=== PATIENT | male | born 1945 | race Caucasian/White ===

== ENCOUNTER → 2016-11-25 | Outpatient (CLI) | payer MEDICARE, OTHER ==
[2016-03-27 11:05] VITALS: BP 115/69
[~2016-11-25] MED LIST: ASPI81TA50 PO; BUPR150T4 PO; CELE200C PO; CITA20TA5 PO; MELO-150 PO; METO25TA4 PO; METO25TA9 PO; REGADENOSON 0.4 MG/5 ML DISP.SYRIN. IV ONE; SIMV20TA3 PO; TAMS0.4C2 PO; TRAM50TA PO; TRAZ50TA15 PO
--- NOTE | 2016-11-25 11:05 | RAD ---
APPROVED REPORT Test Type: Pharmacological Stress Nurse/Tech: Rhonda Dooley R.N. Test Indications: CAD, fatigue Cardiac History: Family history, CAD Medications: See Electronic Medical Record Medical History: See Electronic Medical Record Resting ECG: S,. richard Resting Heart Rate: 47 bpm Resting Blood Pressure: 98/54mmHg Pretest Chest Pain: No chest pain Nurse/Tech Notes S1S2, lungs sound clear Consent: The procedure was explained to the patient in lay terms. Informed consent was witnessed. Carloz eout was entered into [employer]. History and Stress Test performed by Rhonda Dooley R.N. Pharm. Details Pharmacologic stress testing was performed using 0.4mg per 5ml of regadenoson given intravenously ove r 7-10 seconds. Stress Symptoms No chest pain or symptoms. POST EXERCISE Reason for Termination: Infusion complete Max HR: 77 bpm Max Blood Pressure: 106/57mmHg Blood Pressure response to exercise: Normal blood pressure response during stress. Chest Pain: No. Arrhythmia: No. ST Change: No. INTERPRETATION Stress EKG Conclusion: No evidence of stress induced EKG changes. Baseline septal infarct pattern. Imaging Protocol IMAGE PROTOCOL: Rest Tc-99m/stress Tc-99m 1 day Rest: Stress: Viability: Radiopharm.Tc99m FhamrazefDn49u Sestamibi Rkdk38eYp 31mCi Img Date 11/25/2016 11/25/2016 Inj-Img [id number]. 60min. Rest Admin Site:IV - Left AntecubitalAdministrator:Canelo Powell RT (R)(N) Stress Admin Site: IV - Left AntecubitalAdministrator: Gricel Silva RT (R)(N) STRESS DATA End Diast. Vol.92.0mlAv. Heart Rate59.0bpm End Syst. Vol.25.0mlCO Index BSA0.0L/min Myocardial Mfaq740.0gEject. Brftucjm31.0% Stress Rates Pk. Fill Rate2.13EDV/secLVtime Pk. Fill 190.27msec Pk. Empty Rate3.90ESV/secLVtime Pk. Fsssh147.30msec 11/19 Pk. Fill1.29EDV/sec Stress Scores Regional WT0.00Summed WT0.00 Regional WM0.00Summed WM1.00 LV Perfusion There is a moderate to severe intensity, moderate to large sized fully reversible defect in the basal to distal inferior wall suggestive of impaired perfusion reserve without a prior infarct. Due to subdiaphragmatic activity, the inferior defect may be artifactually viable based on increased counts from the gut activity and may essentially be a fixed defect. Furthermore, due to significant motion artifact, the perfusion abnormality may also represent a compl ete artifact given the degree of motion and normal EF of > 70%. LV Perf. Quant 17 Seg. SSS0.00 17 Seg. SRS0.00 17 Seg. SDS0.00 Stress Defect Extent (% LAD)0.00Rest Defect Extent (% LAD)0.00Rev. Defect Extent (% LAD)0.00 Stress Defect Extent (% LCX) 0.00Rest Defect Extent (% LCX)0.00Rev. Defect Extent (% LCX)0.00 Stress Defect Extent (% RCA)0.00Rest Defect Extent (% RCA)0.00Rev. Defect Extent (% RCA)0.00 Stress Defect Extent (% PRETTY)0.00Rest Defect Extent (% PRETTY)0.00Rev. Defect Extent (% PRETTY)0.00 Other Information Quality:Poor Risk Assessment: Moderate Risk Conclusion 1. Poor quality study 2. There is a moderate to severe intensity, moderate to large sized fully reversible defect in the ba angela to distal inferior wall suggestive of impaired perfusion reserve without a prior infarct. 3. Due to subdiaphragmatic activity, the inferior defect may be artifactually viable based on increas ed counts from the gut activity and may essentially be a fixed defect. 4. Furthermore, due to significant motion artifact, the perfusion abnormality may also represent a co mplete artifact given the degree of motion and normal EF of > 70%.
== END | disposition home or self-care (01) ==
LOC: NM 06:39
PROVIDERS: ATTEND Internal Medicine Cardiovascular Disease
DX: I25.10 Atherosclerotic heart disease of native coronary artery without angina pectoris (principal); R53.83 Other fatigue
CPT/HCPCS: 78452; 93017; 96374; 96376; A9500; J2785

== ENCOUNTER 2016-11-29 08:50 | Outpatient (CLI) | payer MEDICARE, OTHER ==
[2016-11-29] VITALS (12 sets, daily range): BP systolic 94–117; BP diastolic 58–71
[~2016-11-29] VITALS: Ht 182.9 cm; Wt 95.3 kg
[~2016-11-29 08:50] MED LIST changes: -REGADENOSON 0.4 MG/5 ML DISP.SYRIN. IV ONE
[2016-11-29] MEDS ORDERED: IV NORMAL SALINE 1000ML BAG 1,000 ML IV SCH ×2 (09:07→12:25)
[2016-11-29 09:23] LABS: BASO # 0.1 x10^3/uL (0.0-0.2); BASO % 1 % (0-3); EOS % 3 % (0-3); HEMATOCRIT 45.1 % (39.0-53.0); HEMOGLOBIN 15.3 g/dL (13.0-17.5); LYMPH # 1.4 x10^3/uL (1.0-4.8); LYMPH % 16 % (24-48); MEAN CORPUSCULAR HEMOGLOBIN 31 pg (25-35); MEAN CORPUSCULAR HGB CONC 34 g/dL (31-37); MEAN CORPUSCULAR VOLUME 92 fL (79-100); MONO % 6 % (0-9); NEUT % 75 % (31-73); PLATELET COUNT 262 x10^3/uL (140-400); RED BLOOD COUNT 4.92 x10^6/uL (4.30-5.70); RED CELL DISTRIBUTION WIDTH 13.2 % (11.5-14.5); WHITE BLOOD COUNT 8.9 x10^3/uL (4.0-11.0)
[2016-11-29 09:33] LABS: CALCIUM 8.8 mg/dL (8.5-10.1); GFR 74.1; POTASSIUM 4.2 mmol/L (3.5-5.1)
[2016-11-29 09:38] LABS: PROTHROMBIN TIME PATIENT 12.2 SEC (11.7-14.0)
[2016-11-29] MEDS ORDERED: DIPHENHYDRAMINE 50 MG/ML VIAL IVP ONE (10:15)
[2016-11-29] MEDS ORDERED: methylPREDNISolone SOD SUCC PF 125 MG/2 ML VIAL. IV ONE (10:15)
[2016-11-29] MEDS ORDERED: FAMOTIDINE 20 MG/2 ML VIAL IVP ONE (10:15)
[2016-11-29] MEDS ORDERED: LIDOCAINE 2% 20 ML VIAL. ONE (10:46)
[2016-11-29] MEDS ORDERED: IOHEXOL 300 MG/ML 100ML VIAL. ONE (10:46)
[2016-11-29] MEDS ORDERED: FENTANYL PF 100 MCG/2 ML VIAL. ONE (11:09)
[2016-11-29] MEDS ORDERED: MIDAZOLAM HCL 2 MG/2 ML VIAL. ONE (11:09)
[2016-11-29] MEDS ORDERED: DIPHENHYDRAMINE 50 MG/ML VIAL ONE (11:10)
[2016-11-29] MEDS ORDERED: FAMOTIDINE 20 MG/2 ML VIAL ONE (11:10)
--- NOTE | 2016-11-29 11:28 | PDOC ---
MODERATE SEDATION ASSESSMENT RISKS/ALTERNATIVES Risks/Alternatives Risks and alternatives of this type of sedation and procedure discussed with: RISK/ALTERNATIVES: Patient H & P ON CHART H & P H & P on chart and reviewed for co-morbid conditions and appropriate labs. H&P ON CHART: Yes STATUS PREG STATUS ASSESSED: N/A MEDS/ALLERGIES REVIEWED Meds/Allergies Reviewed Medications and Allergies including time and route of recently administered narcotics and sedatives. MEDS/ALLERGIES REVIEWED: Yes ASA RATING ASA RATING: II AIRWAY ASSESSMENT Airway Assessment Airway patency, oral function limitations, presence of caps, crowns, dentures, partials, and ability to extend neck assessed. AIRWAY ASSESSMENT: Yes MALLAMPATI SCORE MALLAMPATI SCORE: II PRE-SEDATION ASSESSMENT PRE-SEDATION ASSESSMENT: Yes JARRELL LARSON MD Nov 29, 2016 11:28
[2016-11-29] MEDS ORDERED: MIDAZOLAM HCL 2 MG/2 ML VIAL. IV ONE (11:30)
[2016-11-29] MEDS ORDERED: LIDOCAINE 2% 20 ML VIAL. IJ ONE (11:30)
[2016-11-29] MEDS ORDERED: FENTANYL PF 100 MCG/2 ML VIAL. IV ONE (11:30)
[2016-11-29] MEDS ORDERED: IOHEXOL 300 MG/ML 100ML VIAL. IART ONE (11:30)
[2016-11-29] MEDS ORDERED: CONTRAST GIVEN MC PRN (11:45)
--- NOTE | 2016-11-29 12:24 | CARD ---
APPROVED REPORT Procedures Left heart catheterization. Left ventriculogram. Selective coronary angiogram. The patient is a 71-year-old male with a history of mild coronary artery disease. He reported episode s of mild increasing shortness of breath and had an abnormal nuclear stress test prior to upcoming o rthopedic surgery. Heart catheterization was recommended. Risks and benefits were discussed. The gurpreet ent has agreed to proceed. After informed consent was obtained the patient was brought to the heart catheterization lab. The rig ht femoral artery was prepared in the usual manner with Betadine, sterile draping and local anestheti c. An 18-gauge needle was used to enter the right femoral artery, a wire placed the [place] sheath p laced over the wire. A [place] JL4 diagnostic catheter was advanced to the ascending aorta. It was t hen used to engage the left coronary artery system and sequential injections in various views were ob tained. A [place] diagnostic Lloyd right catheter was advanced to the ascending aorta. It was use d to engage the right coronary artery and sequential injections in various views were obtained. A pig tail catheter was advanced to the ascending aorta and then the left ventricle. 30 STEWARD left ventricul ogram was performed. Pressures were obtained and pullback was measured. The catheter was removed from the patient. Injection of the sheath showed normal placement. The sheath was removed and sealed with an Angio-Seal product. There were no complications. Findings. Hemodynamics. Aortic root pressure of 110/74, left ventricular pressure 112/20. Coronaries. Left main. The left main had no lesions. Left anterior descending. The LAD was a moderate size vessel. It had a mid 20-25% lesion. Left circumflex. The left circumflex was large dominant vessel with no lesions. Right coronary artery. The right coronary was a smaller nondominant vessel with a proximal 15% lesion . Left ventriculogram. The left ventricle showed normal left ventricular systolic function with an ejection fraction of 55% <Conclusion> Mild coronary artery disease. Normal left ventricular systolic function.
[2016-11-29] MEDS ORDERED: NITROGLYCERIN SUBLINGUAL 0.4 MG BOTTLE OF 25. SL PRN (12:30)
[2016-11-29] MEDS ORDERED: 0.9 % SODIUM CHLORIDE 10 ML DISP.SYRIN. IV PRN (12:30)
== END 2016-11-29 15:10 | disposition home or self-care (01) ==
LOC: CCL 08:50
PROVIDERS: ATTEND Internal Medicine Cardiovascular Disease
DX: I25.10 Atherosclerotic heart disease of native coronary artery without angina pectoris (principal); R94.39 Abnormal result of other cardiovascular function study; E78.00 Pure hypercholesterolemia, unspecified; I48.91 Unspecified atrial fibrillation; I10 Essential (primary) hypertension; E66.9 Obesity, unspecified; K21.9 Gastro-esophageal reflux disease without esophagitis; M19.90 Unspecified osteoarthritis, unspecified site; F41.9 Anxiety disorder, unspecified; F32.9 Major depressive disorder, single episode, unspecified; F10.99 Alcohol use, unspecified with unspecified alcohol-induced disorder
CPT/HCPCS: 36415; 80048; 85027; 85610; 93458; C1769; C1771; C1892; G0269; J1200; J2250; J2930; J3010; J7030; Q9967; S0028

== ENCOUNTER → 2017-02-18 | Outpatient (CLI) | payer MEDICARE, OTHER ==
[2016-11-29 14:45] VITALS: BP 94/65
[~2017-02-18] MED LIST changes: +IOHEXOL 180 MG/ML 10 ML VIAL. ONE; +methylPREDNISolone ACETATE 40 MG/ML VIAL. ONE; +methylPREDNISolone ACETATE 80 MG/ML VIAL. ONE
--- NOTE | 2017-02-18 18:39 | PAIN ---
DATE OF SERVICE: 02/18/2017 DIAGNOSES: 1. Lumbar radiculopathy with lumbar degenerative disk disease and lumbar spondylosis. 2. Cervical radiculopathy with post-cervical laminectomy syndrome. HISTORY OF PRESENT ILLNESS: The patient is a 71-year-old male who returns for followup status post previous lumbar epidural steroid injections, last seen on 11/13/2016. The patient has undergone epidural injections at that time with very good results, with pain returning now over the past few weeks in the low back and right leg. The patient did have his right knee replaced since he has been here last, and reports this is doing much better as well, but still having some significant back pain radiating to the right posterior gluteus, posterior thigh, posterior lower leg, worse with sitting, standing, walking, changing positions, using ice and tennis ball to rub some of the stiffness out of the musculature in the low back and hip, but still significant pain. The patient reports anywhere from 4-10 on a scale of 10/10 with activity, 4 with sitting. The patient reports it awakens him from sleep once again with no new motor or sensory deficits, no loss of motor function. PHYSICAL EXAMINATION: VITAL SIGNS: The patient's blood pressure is 112/48, pulse 67, respirations 18, temperature 99.3 degrees Fahrenheit. Height is 6 feet, weight is 207 pounds. GENERAL: The patient is awake, alert, oriented, appropriate, very pleasant demeanor. HEENT: Head shows normocephalic, atraumatic. Extraocular movements are intact and symmetrical. Oral cavity shows mucous membranes moist and pink. Dentition is intact. NECK: Shows anterior throat supple without palpable lymphadenopathy noted. Swallow reflex is symmetrical. CHEST: Shows normal on inspection. Breath sounds clear to auscultation bilaterally. HEART: Shows S1 and S2 clear. ABDOMEN: Soft, nontender, nondistended. No palpable organomegaly. No rebound or guarding demonstrated. BACK: Shows spine grossly midline. Lumbar paraspinous musculature shows symmetrical in appearance. The patient shows moderate tenderness with palpation bilaterally in the paraspinous musculature in the middle and lower distribution of paraspinous muscles, but only to a moderate extent and without radiation. Lower extremities showed deep tendon reflexes at 1+ in the patellar and tendo calcaneus tendons, previously well-healed surgical scars again noted on both knees now. Motor exam is strong with 5/5 dorsiflexion, extension, quadriceps and hamstring flexion and symmetrical. Peripheral pulses are 1+ posterior tibial and dorsalis pedis pulses. No peripheral edema is noted bilaterally. Options were discussed with the patient and the patient's old chart was reviewed and his current medication regimen updated. Current review of systems updated today as well. PLAN: We will proceed with a lumbar epidural steroid injection today in translaminar approach, as the first in this series with fluoroscopic guidance. Risks were again discussed including, but not limited to bleeding, infection, possibility of epidural hematoma, subsequent neurologic compromise, dural puncture, headaches, spinal cord and/or nerve damage, side effects of steroid medication and poor results regarding pain control. The patient understands and wishes to proceed. The patient will return to clinic in approximately 2 weeks for followup, was counseled on return appointment, activity level and side effects to be aware of. DIAGNOSIS: Lumbar radiculopathy with lumbar spondylosis and lumbar degenerative disk disease. PROCEDURES: Lumbar epidural steroid injection in translaminar approach at the L5-S1 level using C-arm fluoroscopic guidance under sterile prep and drape using local anesthetic. Medication injected is 120 mg Depo-Medrol plus 10 mL of preservative-free normal saline and 2 mL of Isovue for contrast. CONDITION AT DISCHARGE: stable. The patient tolerated procedure well, had no complications. BRADY CHAMBERLAIN MD DR: CHARISSE/david JOB#: [id number] / [id number]
== END | disposition home or self-care (01) ==
LOC: PNCL 08:10
PROVIDERS: ATTEND Anesthesiology
DX: M51.16 Intervertebral disc disorders with radiculopathy, lumbar region (principal); M47.26 Other spondylosis with radiculopathy, lumbar region; M54.12 Radiculopathy, cervical region; M96.1 Postlaminectomy syndrome, not elsewhere classified; F41.9 Anxiety disorder, unspecified; F32.9 Major depressive disorder, single episode, unspecified; E78.00 Pure hypercholesterolemia, unspecified; I10 Essential (primary) hypertension; E66.9 Obesity, unspecified; M19.90 Unspecified osteoarthritis, unspecified site; I48.91 Unspecified atrial fibrillation; K21.9 Gastro-esophageal reflux disease without esophagitis; Z96.652 Presence of left artificial knee joint; Z96.611 Presence of right artificial shoulder joint; Z72.89 Other problems related to lifestyle
CPT/HCPCS: 62323; J1030; J1040

== ENCOUNTER → 2017-03-04 | Outpatient (CLI) | payer MEDICARE, OTHER ==
[2016-11-29 14:45] VITALS: BP 94/65
--- NOTE | 2017-03-05 00:07 | PAIN ---
DATE OF SERVICE: 03/04/2017 PROGRESS NOTE FOR PAIN CLINIC DIAGNOSES: 1. Lumbar radiculopathy with lumbar degenerative disk disease, lumbar spondylosis. 2. Cervical radiculopathy with cervical post-laminectomy syndrome. HISTORY OF PRESENT ILLNESS: The patient is a 71-year-old male, who returns for followup status post lumbar epidural steroid injection x 1. This series on 02/18/2017. The patient did very well, reports about 50% improvement overall, still has some pain in the low back and legs, more on the posterior gluteus, posterior thigh, posterior lower leg, but again significantly improved since about 2 on a scale 10 currently, it can be as high as 9 with increased activity, walking, but this is rare. The patient reports an aching, burning on and off pain, not constant ____ the patient is sleeping well at night, increasing his daily activity with better ease and comfort. The patient reports no new motor or sensory deficits, no new bowel or bladder incontinence or other complaints. PHYSICAL EXAMINATION: VITAL SIGNS: The patient's blood pressure 112/64, pulse 59, respirations are 18, temperature 98.2 degrees Fahrenheit. Height is 6 feet, weight is 202 pounds. GENERAL: The patient is awake, alert, oriented, appropriate, very pleasant demeanor. HEENT: Head shows normocephalic, atraumatic. Extraocular movements intact, symmetrical. Oral cavity, mucous membranes moist and pink. Dentition is intact. NECK: Shows anterior throat supple without palpable lymphadenopathy noted. Swallow reflex is symmetrical. CHEST: Shows normal on inspection. Breath sounds clear to auscultation bilaterally. HEART: Shows S1 and S2 clear. No murmurs auscultated. ABDOMEN: Soft, nontender, nondistended. No palpable organomegaly is noted. BACK: Shows midline, spine some moderate tenderness with palpation in the lumbar paraspinous musculature bilaterally, but ____. No significant tenderness over the sacroiliac region, sacrum or lumbar spinous processes. The patient shows good rotation and motion of the lumbar spine, both laterally as well as extension and flexion without difficulty. EXTREMITIES: Lower extremities showed deep tendon reflexes at 1+/4 in the patellar and tendo calcaneus tendons are equal. Motor exam is strong with 5/5 dorsiflexion, extension, quadriceps and hamstring flexion. Options were discussed with the patient and the patient's old chart was reviewed and his current medication regimen updated. Current review of systems updated today as well. We will proceed with second in this series of lumbar epidural steroid injection using fluoroscopic guidance under sterile prep and drape. Risks were then discussed including, but not limited to bleeding, infection, possibility of epidural hematoma, subsequent neurological compromise, dural puncture, headaches, spinal cord and/or nerve damage, side effects of steroid medication and poor results regarding pain control. The patient understands and wishes to proceed. The patient will return to clinic in approximately 2 weeks for followup, counseled on return appointment, activity level and side effects to be aware of. DIAGNOSES: Lumbar radiculopathy with lumbar degenerative disk disease, lumbar spondylosis. PROCEDURES: Lumbar epidural steroid injection in translaminar approach at the L5-S1 level using C-arm fluoroscopic guidance under sterile prep and drape using local anesthetic MEDICATION INJECTED: Depo-Medrol 120 mg plus 10 mL of preservative-free normal saline and 2 mL of Isovue for contrast. CONDITION AT DISCHARGE: Stable. The patient tolerated procedure well and no complications. BRADY CHAMBERLAIN MD DR: CHARISSE/david JOB#: [id number] / [id number]
== END | disposition home or self-care (01) ==
LOC: PNCL 08:20
PROVIDERS: ATTEND Anesthesiology
DX: M51.16 Intervertebral disc disorders with radiculopathy, lumbar region (principal); M47.26 Other spondylosis with radiculopathy, lumbar region; M96.1 Postlaminectomy syndrome, not elsewhere classified; M54.12 Radiculopathy, cervical region; E78.00 Pure hypercholesterolemia, unspecified; I10 Essential (primary) hypertension; E66.9 Obesity, unspecified; F41.9 Anxiety disorder, unspecified; F32.9 Major depressive disorder, single episode, unspecified; M19.90 Unspecified osteoarthritis, unspecified site; Z72.89 Other problems related to lifestyle
CPT/HCPCS: 62323; J1030; J1040

== ENCOUNTER → 2017-05-02 | Outpatient (CLI) | payer MEDICARE, OTHER ==
[2016-11-29 14:45] VITALS: BP 94/65
[~2017-05-02] MED LIST changes: -MELO-150 PO; +MELO15TA23 PO
--- NOTE | 2017-05-02 11:06 | PAIN ---
DATE OF SERVICE: 05/02/2017 PROGRESS NOTE FOR PAIN CLINIC DIAGNOSES: Lumbar degenerative disk disease, lumbar radiculopathy and lumbar spondylosis. HISTORY OF PRESENT ILLNESS: The patient is a 72-year-old male, who returns for followup status post lumbar epidural steroid injection x 2, last seen on 03/04/2017. The patient did very well about 75% improvement in the low back and right lower extremity pain. The patient reports it is returning gradually, but still near to baseline. The patient reports it is 7 on a scale of 10 it is worst, is currently 2 on a scale of 10 ____ reports the pain is dull and shooting it can be severe, most of with walking, standing. The patient reports it does not awake him from sleep at night, and he feels better with sitting down or lying down. No new motor or sensory deficits, no new bowel or bladder incontinence or other complaints. PHYSICAL EXAMINATION: VITAL SIGNS: Today, the patient's blood pressure is 105/43, pulse 61, respirations are 20, temperature 98.4 degrees Fahrenheit, height 6 feet, weight is 211 pounds. GENERAL: The patient is awake, alert, oriented, appropriate, very pleasant demeanor. HEENT: Head shows normocephalic, atraumatic. Extraocular movements are intact and symmetrical. Oral cavity shows mucous membranes moist and pink. Dentition is intact. NECK: Shows anterior throat supple without palpable lymphadenopathy noted. Swallow reflex is symmetrical. CHEST: Shows normal on inspection. Breath sounds are clear to auscultation bilaterally. HEART: Shows S1 and S2 clear. ABDOMEN: Soft, nontender, nondistended. No palpable organomegaly, no rebound or guarding demonstrated. BACK: Shows spine grossly midline. Lumbar paraspinous musculature shows symmetry on inspection with palpation shows some mild tenderness in the low lumbar distribution, but only mildly ____ lumbar paraspinous muscles without radiation. The patient has good rotational motion of lumbar spine, both laterally as well as extension and flexion without difficulty. EXTREMITIES: Lower extremities showed deep tendon reflexes at 1+ in the patellar and tendo calcaneus tendons. Motor exam is strong with 5/5 dorsiflexion, extension, quadriceps and hamstring flexion equal. Options were discussed with the patient and the patient's old chart was reviewed as his current medication regimen updated. Current review of systems updated today as well. We will proceed with third in the series of lumbar epidural steroid injection with fluoroscopic guidance. Risks were then discussed including, but not limited to bleeding, infection, possibility of epidural hematoma and subsequent neurological compromise, dural puncture, headaches, spinal cord and/or nerve damage, side effects of steroid medication and poor results regarding pain control. The patient understands and wishes to proceed. The patient will return to clinic in approximately 2 weeks for followup. He was counseled as to return appointment, activity level and side effects to be aware of. DIAGNOSES: Lumbar radiculopathy with degenerative disk disease, lumbar spondylosis. PROCEDURES: Lumbar epidural steroid injection in translaminar approach at the L5-S1 level using C-arm fluoroscopic guidance under sterile prep and drape using local anesthetic. MEDICATIONS INJECTED: Depo-Medrol 120 mg plus 10 mL preservative free normal saline and 2 mL of Isovue for contrast. CONDITION AT DISCHARGE: Stable. The patient tolerated the procedure well, had no complications. BRADY CHAMBERLAIN MD DR: CHARISSE/nts JOB#: [id number] / [id number]
== END | disposition home or self-care (01) ==
LOC: PNCL 07:43
PROVIDERS: ATTEND Anesthesiology
DX: M51.16 Intervertebral disc disorders with radiculopathy, lumbar region (principal); M47.26 Other spondylosis with radiculopathy, lumbar region; I25.10 Atherosclerotic heart disease of native coronary artery without angina pectoris; E78.00 Pure hypercholesterolemia, unspecified; I48.91 Unspecified atrial fibrillation; I10 Essential (primary) hypertension; K21.9 Gastro-esophageal reflux disease without esophagitis; E66.9 Obesity, unspecified; Z68.45 Body mass index [BMI] 70 or greater, adult; F41.9 Anxiety disorder, unspecified; F32.9 Major depressive disorder, single episode, unspecified; Z86.69 Personal history of other diseases of the nervous system and sense organs; Z96.652 Presence of left artificial knee joint; Z96.611 Presence of right artificial shoulder joint; Z87.39 Personal history of other diseases of the musculoskeletal system and connective tissue; Z91.048 Other nonmedicinal substance allergy status
CPT/HCPCS: 62323; J1030; J1040

== ENCOUNTER → 2017-05-13 | Outpatient (CLI) | payer MEDICARE ==
[2016-11-29 14:45] VITALS: BP 94/65
[~2017-05-13] MED LIST changes: -IOHEXOL 180 MG/ML 10 ML VIAL. ONE; -methylPREDNISolone ACETATE 40 MG/ML VIAL. ONE; -methylPREDNISolone ACETATE 80 MG/ML VIAL. ONE
--- NOTE | 2017-05-14 08:47 | CARD ---
APPROVED REPORT EXAM: Two-dimensional and M-mode echocardiogram with Doppler and color Doppler. Other Information Quality : Average Rhythm : NSR INDICATION Atrial Fibrillation 2D DIMENSIONS RVDd3.3 (2.9-3.5cm)Left Atrium(2D)4.3 (1.6-4.0cm) IVSd1.1 (0.7-1.1cm)Aortic Root(2D)3.1 (2.0-3.7cm) LVDd4.7 (3.9-5.9cm)LVOT Diameter2.2 (1.8-2.4cm) PWd1.1 (0.7-1.1cm)LVDs2.7 (2.5-4.0cm) FS (%) 32.2 %SV75.2 ml LVEF(%)63.2 (>50%) Aortic Valve AoV Peak Oz.97.8cm/sAoV VTI20.3cm AO Peak GR.3.8mmHgLVOT Peak Oz.78.2cm/s LVOT VTI 18.43cmAO Mean GR.2mmHg REINALDO (VMAX)3.68yt1BAM (VTI)3.44cm2 Mitral Valve MV E Mlyyqfur35.3cm/sMV DECEL QFEU781nr MV A Tygwqlvp58.4cm/sMV WHP29zj E/A Ratio1.3MV A Wdbtuets557qk MVA (PHT)3.55cm2 TDI E/Lateral E'5.7E/Medial E'7.7 Pulmonary Valve PV Peak Zfdhusqi106.9cm/sPV Peak Grad.4mmHg RVOT VTI18.4cm Tricuspid Valve TR P. Gnlslskk535bm/sRAP OHPSZZXA2qeNn TR Peak Gr.50fwHxMZUN43suXh Pulmonary Vein S1 Jjeyprxx85.5cm/sD2 Rrprcuhr03.3cm/s LEFT VENTRICLE The left ventricle is normal size. There is normal left ventricular wall thickness. Left ventricle sy stolic function is normal. The Ejection Fraction is 60-65%. There is normal LV segmental wall motion. Tissue Doppler imaging reveals mild left ventricular diastolic dysfunction. There is no ventricular septal defect visualized. RIGHT VENTRICLE The right ventricle is normal size. The right ventricular systolic function is normal. ATRIA The left atrium is borderline dilated. The right atrium size is normal. The interatrial septum is int act with no evidence for an atrial septal defect or patent foramen ovale as noted on 2-D or Doppler i maging. AORTIC VALVE The aortic valve is normal in structure and function. The aortic valve is trileaflet. Doppler and Col or Flow revealed no significant aortic regurgitation. There is no significant aortic valvular stenosi s. MITRAL VALVE The mitral valve leaflets are thickened. There is no mitral valve stenosis. Doppler and Color Flow re vealed trace mitral regurgitation. TRICUSPID VALVE The tricuspid valve is normal in structure and function. Doppler and Color Flow revealed trace to mil d tricuspid regurgitation. The PA pressure was estimated at 34 mmHg. There is no tricuspid valve sten osis. PULMONIC VALVE Doppler and Color Flow revealed trace to mild pulmonic valvular regurgitation. There is no pulmonic v alvular stenosis. GREAT VESSELS The aortic root is normal in size. The ascending aorta is normal in size. The IVC is normal in size a nd collapses >50% with inspiration. PERICARDIAL EFFUSION There is no evidence of significant pericardial effusion. Critical Notification Critical Value: No <Conclusion> Left ventricle systolic function is normal. The Ejection Fraction is 60-65%. There is normal LV segmental wall motion.
== END | disposition home or self-care (01) ==
LOC: ECHO 07:41
PROVIDERS: ATTEND Internal Medicine Cardiovascular Disease
DX: I48.91 Unspecified atrial fibrillation (principal); I08.1 Rheumatic disorders of both mitral and tricuspid valves
CPT/HCPCS: 93306

== ENCOUNTER → 2017-05-30 | Day surgery (SDC) | payer MEDICARE ==
[~2017-05-30] MED LIST changes: +BENZOCAINE ONE 20% MUCOSAL SPRAY.; +GLUC1CAP18 PO; +HYDROmorphone 2 MG/ML VIAL IV PRN; +IV RINGERS,LACTATED 1000ML 1,000 ML IV SCH; +LIDOCAINE 1% 1 ML SYRINGE. ID PRN; +LIDOCAINE 2% PF Vial for OR 5 ML VIAL. ONE; +LIDOCAINE 2% TOPICAL JELLY 30GM TUBE. TP ONE; +LIDOCAINE 2% VISCOUS 15 ML SOLUTION. ONE; +MORPHINE SULFATE 2 MG/ML DISP.SYRIN. IV PRN; +OMEG1CAP27 PO; +ONDANSETRON PF 4 MG/2 ML VIAL. IV PRN; +PROCHLORPERAZINE 10 MG/2 ML VIAL. IV PRN; +PROPOFOL 40 ML IV ONE; +fentaNYL PF VIAL 100 MCG/2 ML VIAL IV PRN
[2017-05-30 13:18] VITALS: BP 133/61
--- NOTE | 2017-06-04 12:05 | CARD ---
APPROVED REPORT EXAM: Transesophageal echocardiogram with color flow Doppler. INDICATION Atrial Fibrillation Reason For Test : Rule out Intracardiac Thrombus. PROCEDURE After obtaining informed consent, patient underwent transesophageal echo in the PACU. Type of Sedation : General Anesthesia Sedation was provided by anesthesiologist, see EMR for medications administered. Sedation was administered by KANWAL Sanchez. Sedation was achieved with Propofol 300 mg intravenously. Sedation was achieved with Lidocaine 60 mg intravenously. Transesophageal probe was inserted and advanced into esophagus by Armond Story MD. Echo enhancement indication: R/O Septal defect. Echo enhancement agent administered: Agitated Saline The HANNY was performed without complications. Throughout the procedure, the blood pressure, pulse oximetry, cardiac rhythm, and rate were monitored . The patient tolerated the procedure without adverse effects. Recovery from conscious sedation was une ventful and vital signs were stable. LEFT VENTRICLE The left ventricle is normal size. There is normal left ventricular wall thickness. Left ventricle sy stolic function is normal. The Ejection Fraction is 60-65%. There is normal LV segmental wall motion. There is no ventricular septal defect visualized. RIGHT VENTRICLE The right ventricle is normal size. The right ventricular systolic function is normal. ATRIA The left atrium is moderately dilated. The right atrium is mildly dilated. The interatrial septum is intact with no evidence for an atrial septal defect or patent foramen ovale as noted on 2-D or Dopple r imaging. Injection of bubbles documented no interatrial shunt. There is no thrombus noted in the le ft atrial appendage. AORTIC VALVE The aortic valve is normal in structure and function. The aortic valve is trileaflet. Doppler and Col or Flow revealed no significant aortic regurgitation. There is no significant aortic valvular stenosi s. MITRAL VALVE The mitral valve leaflets are thickened. Doppler and Color Flow revealed mild mitral regurgitation. TRICUSPID VALVE The tricuspid valve is normal in structure and function. Doppler and Color Flow revealed trace tricus pid valve regurgitation. PULMONIC VALVE The pulmonary valve is normal in structure and function. GREAT VESSELS The aortic root is normal in size. The ascending aorta is normal in size. Normal pulmonary venous cristhian w (Doppler). The IVC was visualized and appears normal in size. The SVC was visualized and appears no rmal in size. PERICARDIAL EFFUSION There is no evidence of significant pericardial effusion. Critical Notification Critical Value: No <Conclusion> The left ventricle is normal size. Left ventricle systolic function is normal. The Ejection Fraction is 60-65%. There is normal left ventricular wall thickness. The left atrium is moderately dilated. The right atrium is mildly dilated. The interatrial septum is intact with no evidence for an atrial septal defect or patent foramen ovale as noted on 2-D or Doppler imaging. Injection of bubbles documented no interatrial shunt. There is no thrombus noted in the left atrial appendage. There is no significant aortic valvular stenosis. Doppler and Color Flow revealed no significant aortic regurgitation. Doppler and Color Flow revealed mild mitral regurgitation. Doppler and Color Flow revealed trace tricuspid valve regurgitation.
== END | disposition home or self-care (01) ==
LOC: SURG 10:13
PROVIDERS: ATTEND Internal Medicine Cardiovascular Disease
DX: I48.91 Unspecified atrial fibrillation (principal); Z86.69 Personal history of other diseases of the nervous system and sense organs; I25.10 Atherosclerotic heart disease of native coronary artery without angina pectoris; E78.00 Pure hypercholesterolemia, unspecified; I10 Essential (primary) hypertension; E66.9 Obesity, unspecified; Z68.44 Body mass index [BMI] 60.0-69.9, adult; Z96.611 Presence of right artificial shoulder joint; Z96.652 Presence of left artificial knee joint; Z91.048 Other nonmedicinal substance allergy status
CPT/HCPCS: 93312; 93325; J2001; J2704

== ENCOUNTER → 2017-11-26 | Outpatient (CLI) | payer MEDICARE | END | disposition home or self-care (01) | LOC: PNCL 08:22 | DX: M51.16 Intervertebral disc disorders with radiculopathy, lumbar region (principal); M47.896 Other spondylosis, lumbar region | CPT/HCPCS: G0463 ==

== ENCOUNTER → 2017-11-27 | Outpatient (CLI) | payer MEDICARE ==
[~2017-11-27] MED LIST changes: -ASPI81TA50 PO; -BENZOCAINE ONE 20% MUCOSAL SPRAY.; -BUPR150T4 PO; -CELE200C PO; -CITA20TA5 PO; -GLUC1CAP18 PO; -HYDROmorphone 2 MG/ML VIAL IV PRN; +IOHEXOL 180 MG/ML 10 ML VIAL.; -IV RINGERS,LACTATED 1000ML 1,000 ML IV SCH; -LIDOCAINE 1% 1 ML SYRINGE. ID PRN; -LIDOCAINE 2% PF Vial for OR 5 ML VIAL. ONE; -LIDOCAINE 2% TOPICAL JELLY 30GM TUBE. TP ONE; -LIDOCAINE 2% VISCOUS 15 ML SOLUTION. ONE; -MELO15TA23 PO; -METO25TA4 PO; -METO25TA9 PO; -MORPHINE SULFATE 2 MG/ML DISP.SYRIN. IV PRN; -OMEG1CAP27 PO; -ONDANSETRON PF 4 MG/2 ML VIAL. IV PRN; -PROCHLORPERAZINE 10 MG/2 ML VIAL. IV PRN; -PROPOFOL 40 ML IV ONE; -SIMV20TA3 PO; -TAMS0.4C2 PO; -TRAM50TA PO; -TRAZ50TA15 PO; -fentaNYL PF VIAL 100 MCG/2 ML VIAL IV PRN; +methylPREDNISolone ACETATE 40 MG/ML VIAL.; +methylPREDNISolone ACETATE 80 MG/ML VIAL.
== END | disposition home or self-care (01) ==
LOC: PNCL 07:45
DX: M51.16 Intervertebral disc disorders with radiculopathy, lumbar region (principal); M96.1 Postlaminectomy syndrome, not elsewhere classified; M47.26 Other spondylosis with radiculopathy, lumbar region
CPT/HCPCS: 62321; J1030; J1040

== ENCOUNTER → 2018-03-10 | Outpatient (CLI) | payer MEDICARE ==
[~2018-03-10] MED LIST changes: +BUPIVACAINE MPF 0.25% 10 ML VIAL.; -IOHEXOL 180 MG/ML 10 ML VIAL.; -methylPREDNISolone ACETATE 80 MG/ML VIAL.
== END ==
LOC: PNCL 09:11
DX: M25.551 Pain in right hip (principal); M54.12 Radiculopathy, cervical region; M79.1 Myalgia
CPT/HCPCS: 20552; J1030; J3490

== ENCOUNTER → 2018-03-26 | Outpatient (CLI) | payer MEDICARE | LOC: PNCL 11:13 | DX: M79.1 Myalgia (principal); M51.16 Intervertebral disc disorders with radiculopathy, lumbar region; M47.26 Other spondylosis with radiculopathy, lumbar region; M96.1 Postlaminectomy syndrome, not elsewhere classified; M25.551 Pain in right hip | CPT/HCPCS: 20552; J1030; J3490 ==

== ENCOUNTER → 2018-04-07 | Outpatient (CLI) | payer MEDICARE | END | disposition home or self-care (01) | LOC: ECHO 12:54 | DX: I10 Essential (primary) hypertension (principal); E78.00 Pure hypercholesterolemia, unspecified; R06.02 Shortness of breath; R06.00 Dyspnea, unspecified | CPT/HCPCS: 93306 ==

== ENCOUNTER → 2018-10-06 | Outpatient (CLI) | payer MEDICARE ==
[2017-05-30 13:18] VITALS: BP 133/61
[~2018-10-06] MED LIST changes: +ASPI81TA50 PO; -BUPIVACAINE MPF 0.25% 10 ML VIAL.; +BUPIVACAINE MPF 0.25% 10 ML VIAL. ONE; +BUPR150T4 PO; +CELE200C PO; +CITA20TA6 PO; +DABI150C PO; +DRON400T PO; +GLUC1CAP18 PO; +MELO15TA23 PO; +METO-239 PO; +METO25TA4 PO; +OMEG1CAP27 PO; +SIMV20TA3 PO; +TAMS0.4C2 PO; +TRAM50TA PO; +TRAZ-85 PO; -methylPREDNISolone ACETATE 40 MG/ML VIAL.; +methylPREDNISolone ACETATE 40 MG/ML VIAL. ONE
--- NOTE | 2018-10-06 10:39 | PAIN ---
DATE OF SERVICE: 10/06/2018 PROGRESS NOTE FOR PAIN CLINIC DIAGNOSES: 1. Lumbar radiculopathy with lumbar degenerative disk disease and lumbar spondylosis. 2. Cervical radiculopathy with post-cervical laminectomy syndrome. 3. Right hip pain with primary osteoarthritis, right hip joint. HISTORY OF PRESENT ILLNESS: The patient is a 73-year-old male who returns for followup status post trigger point injection on 03/26/2018. The patient did very well with this with about 90% improvement until about the last 8 weeks, has returned, worse with walking, standing, changing positions. When he is working in his workshop and garage, he notices the pain in the right low back, now not so much into the gluteus as it was previously but sometimes radiating to the gluteus. The patient reports the pain is a 9 on a scale of 10 at its worst, 5 on average, 3 at its least and is a 5 today. The patient reports it is aching, dull, on and off in intensity, better with sitting or lying down, does not awaken him from sleep at night, reports it is worse with standing, change in positions, bending, especially if he is on his feet for more than about an hour. The patient reports no new motor or sensory deficits and no new bowel or bladder incontinence or other complaints. PHYSICAL EXAMINATION: VITAL SIGNS: The patient's blood pressure 113/74, pulse 78, respirations 18 and temperature is 97.8 degrees Fahrenheit. Height is 6 feet and weight is 219 pounds. GENERAL: The patient is awake, alert, oriented, appropriate and very pleasant demeanor. HEENT: Head shows normocephalic and atraumatic. Extraocular movements are intact and symmetrical. Oral cavity: Mucous membranes moist and pink. Dentition is intact. NECK: Shows anterior throat supple without palpable lymphadenopathy noted. Swallow reflex symmetrical. CHEST: Shows normal on inspection. Breath sounds are clear to auscultation bilaterally. HEART: Shows S1, S2 clear. No murmurs auscultated. ABDOMEN: Soft, nontender and nondistended. No palpable organomegaly is noted. No rebound or guarding demonstrated. BACK: Shows spine grossly in the midline. Normal appearing thoracic kyphosis and lumbar lordotic curvature. Lumbar paraspinous muscle shows symmetrical and with palpation shows some very exquisite tenderness in the right inferior aspect of the right paraspinous musculature, not present on the left, very firm rope-like musculature, very tender with palpation consistent with trigger point areas of musculature but without specific radiation. The patient has good rotational motion of the lumbar spine, both laterally greater than 10 degrees, right and left as well as extension greater than 10 degrees, forward flexion at 45 degrees without exacerbation of the pain. EXTREMITIES: The patient's lower extremities show deep tendon reflexes 1+ in the patella and tendo-calcaneus tendons. Motor exam is strong with 5/5 dorsiflexion and extension. Peripheral pulses are 1+ posterior tibial bilaterally. No peripheral edema is noted. Options were discussed with the patient. The patient's old chart was reviewed as well as his current medication regimen updated. Current review of systems updated today as well. We will proceed with a trigger point injection of the right inferior lumbar paraspinous musculature. Risks were discussed including but not limited to bleeding, infection, possibility of intravascular injection sequelae, spread of local anesthetic and numbness, side effects of steroid medication and poor results regarding pain control. The patient understands and wished to proceed. The patient will return to the clinic in approximately 2 weeks for followup, was counseled as to return appointment, activity level and side effects to be aware of. DIAGNOSIS: Myofascial pain, right lumbar paraspinous musculature. PROCEDURE: Right lumbar paraspinous musculature trigger point injection under sterile prep and drape using local anesthetic. MEDICATION INJECTED: A total of 5 mL of 0.25% bupivacaine, a total of 40 mg Depo-Medrol after negative aspiration at the injection site. CONDITION AT DISCHARGE: Stable. The patient tolerated the procedure well and had no complications. BRADY CHAMBERLAIN MD DR: CHARISSE/david JOB#: [id number] / [id number]
== END | disposition home or self-care (01) ==
LOC: PNCL 08:17
PROVIDERS: ATTEND Anesthesiology
DX: M79.18 Myalgia, other site (principal); M96.1 Postlaminectomy syndrome, not elsewhere classified; M51.16 Intervertebral disc disorders with radiculopathy, lumbar region; M47.26 Other spondylosis with radiculopathy, lumbar region; M16.11 Unilateral primary osteoarthritis, right hip; Z88.8 Allergy status to other drugs, medicaments and biological substances
CPT/HCPCS: 20552; J1030; J3490; 20553

== ENCOUNTER → 2019-02-18 | Outpatient (CLI) | payer MEDICARE, OTHER ==
[2017-05-30 13:18] VITALS: BP 133/61
[~2019-02-18] MED LIST changes: +ALFU10TA3 PO; -BUPIVACAINE MPF 0.25% 10 ML VIAL. ONE; +PEG1POWD PO; +TRAZ-118 PO; -TRAZ-85 PO; -methylPREDNISolone ACETATE 40 MG/ML VIAL. ONE
--- NOTE | 2019-02-18 19:46 | PAIN ---
DATE OF SERVICE: 02/18/2019 PROGRESS NOTE FOR PAIN CLINIC DIAGNOSES: 1. Lumbar radiculopathy with lumbar degenerative disk disease and lumbar spondylosis. 2. Cervical radiculopathy with cervical degenerative disk disease and post-cervical laminectomy syndrome. HISTORY OF PRESENT ILLNESS: The patient a 73-year-old male who returns for followup status post both cervical and lumbar epidural steroid injections in the past, most recently cervical injection on 11/27/2017 and lumbar injection on 05/02/2017. The patient did very well with about 80% improvement with each of these for several months following the injection. The patient reports the pain is returning now in the base of the neck and right shoulder, also in the low back and right lower extremity. The patient reports the pain is significant and his chief complaint is neck and right upper extremity pain and pain radiating into the right shoulder, right arm, mostly in the triceps region, also in the forearm and into the hand with some numbness and tingling as well as in the scapula on the right side. The patient reports pain across the low back into the posterior gluteus, posterior thigh and calf on the right side as well, but his chief complaint again is the neck and right upper extremity. The patient reports the pain is an 8 on a scale of 10 at its worst, 4 on average, 3 at its least and is a 4 today. The patient reports it is aching, sharp, shooting, tingling, on and off in intensity, worse with repetitive motion of the right arm, reaching over his head with his right hand, doing repetitive motions with the right arm or driving, also carrying items or lifting, reaching forward as well. The patient reports no loss of motor function, but some significant fatigability in the right arm with activity. The patient reports also some pain in the low back and right lower extremity with radiating pain in the right leg into the calf, again worse with walking, standing and changing positions, is better with sitting or lying down with each of the pain regions. It does not awaken him from sleep significantly. The patient reports no new motor or sensory deficits. The patient has been doing physical therapy on his own. He has done this in the past multiple times and he has been doing the exercises, strengthening and stretching exercises, especially with the neck and shoulders, but is not decreasing the pain to a significant extent. The patient has been walking daily as well since the weather has been a little bit warmer lately and this seems to help with the low back and right leg pain, but it is limiting him to some extent because of the pain throughout the distance he can walk. The patient continues to do physical therapy exercises with his upper extremities, right shoulder especially, which is helpful, but only to a mild extent. The patient reports no new motor or sensory deficits, no new bowel or bladder incontinence or other complaints. PHYSICAL EXAMINATION: VITAL SIGNS: The patient's blood pressure is 113/79, pulse 88, respirations 18, temperature 98.4 degrees Fahrenheit, height is 6 feet, weight is 218 pounds. GENERAL: The patient is awake, alert, oriented, appropriate, very pleasant demeanor. HEENT: Head shows normocephalic, atraumatic. Extraocular movements are intact and symmetrical. The patient wears eye glasses. Oral cavity: Mucous membranes are moist and pink. Dentition is intact. NECK: Shows anterior throat supple without palpable lymphadenopathy noted. Swallow reflex is symmetrical. CHEST: Shows normal on inspection. Breath sounds are clear to auscultation bilaterally. HEART: Shows S1, S2 clear. No murmurs auscultated. ABDOMEN: Soft, nontender, nondistended. No palpable organomegaly is noted. No rebound or guarding demonstrated. BACK: Shows spine grossly in the midline. Normal-appearing cervical lordotic curvature and some mild flattening of lumbar lordotic curvature. Cervical paraspinous muscle shows symmetrical on inspection. On palpation, he had some moderate tenderness inferiorly in the inferior aspect of the cervical paraspinous musculature and into the superior medial trapezius without radiation. No trigger points. The patient has good rotational motion of cervical spine, both laterally as well as extension and flexion without significant difficulty. EXTREMITIES: Upper extremities show deep tendon reflexes at 2+ in the biceps and triceps tendons. Motor exam is approximately 4 on a scale of 5 with right system archive analyst strength and 5/5 on the left. Shoulder shrug is strong and intact with some moderate tenderness with resistance on the right side only, but without loss of strength. This is true with abduction of the shoulder to 90 degrees. Moderate tenderness in the right side, radiating into the right posterior scapula and into the posterior deltoid and triceps on the right side, but without loss of strength. Peripheral pulses are 2+ in radial distribution. The patient's lower extremities show deep tendon reflexes 1+ in the patellar and tendo-calcaneus tendons. Motor exam is strong with 5/5 dorsiflexion and extension. Peripheral pulses are 1+ posterior tibia. The patient does have a mild straight leg raise, which is positive on the right at about 40-45 degrees. Left side is negative. Options were discussed with the patient. The patient's old chart was reviewed as his current medication regimen updated. Current review of systems updated today as well. We will preauthorize the patient for a cervical epidural steroid injection. He has done very well with these in the past with 80% improvement for several months after his last injection. Pain is returning now to a moderate extent with radicular pain into the right upper extremity in a C6-C7 dermatomal distribution. We will preauthorize the patient for a translaminar C6-C7 cervical epidural steroid injection. In the meantime, the patient will maintain and continue with physical therapy exercises as he has been doing as well as walking and stretching the lower back and legs as well as the neck and shoulders. The patient will follow up for cervical epidural steroid injection in approximately 1 week and we will proceed at that time. BRADY CHAMBERLAIN MD DR: CHARISSE/david JOB#: [id number] / [id number]
== END | disposition home or self-care (01) ==
LOC: PNCL 07:23
PROVIDERS: ATTEND Anesthesiology
DX: M51.16 Intervertebral disc disorders with radiculopathy, lumbar region (principal); M47.26 Other spondylosis with radiculopathy, lumbar region; M50.10 Cervical disc disorder with radiculopathy, unspecified cervical region; M96.1 Postlaminectomy syndrome, not elsewhere classified
CPT/HCPCS: G0463

== ENCOUNTER → 2019-03-01 | Outpatient (CLI) | payer OTHER ==
[2017-05-30 13:18] VITALS: BP 133/61
[~2019-03-01] MED LIST changes: +IOHEXOL 180 MG/ML 10 ML VIAL. ONE; +methylPREDNISolone ACETATE 40 MG/ML VIAL. ONE; +methylPREDNISolone ACETATE 80 MG/ML VIAL. ONE
--- NOTE | 2019-03-02 00:51 | PAIN ---
DATE OF SERVICE: 03/01/2019 PROGRESS NOTE FOR PAIN CLINIC DIAGNOSES: 1. Cervical radiculopathy with cervical degenerative disk disease and post-cervical laminectomy syndrome. 2. Lumbar radiculopathy with lumbar degenerative disk disease and lumbar spondylosis. HISTORY OF PRESENT ILLNESS: The patient is a 73-year-old male who returns for followup status post preauthorization and evaluation for cervical epidural steroid injection. The patient has obtained that and would like to proceed today. The patient reports still significant pain in the base of the neck and into the right greater than left upper extremity in radiating fashion. The patient also reports low back pain with pain radiating to the right lower extremity, posterior gluteus, posterior thigh, posterior calf and was becoming worse with walking, standing, change in positions. The patient reports pain in the neck and shoulder as well as the low back and the right leg. It is a 9 on a scale of 10 at its worst, 6 on average and 3 at its least over the last week. The patient reports it is sharp, shooting, dull and aching in the shoulder, arm, also dull and aching in the leg with radiating pain in the right gluteus, right thigh and right calf. The patient reports no new motor or sensory deficits, no new bowel or bladder incontinence. The patient reports it is better with sitting or lying down. It does not awaken him from sleep, generally in the neck or the lower back. PHYSICAL EXAMINATION: VITAL SIGNS: The patient's blood pressure is 128/66, pulse 78, respirations 18, temperature is 98.2 degrees Fahrenheit. Height is 6 feet, weight is 220 pounds. GENERAL: The patient is awake, alert, oriented, appropriate, very pleasant demeanor. HEENT: Head is normocephalic, atraumatic. Extraocular muscles are intact and symmetrical. Oral cavity: Mucous membranes are moist and pink. Dentition is intact. NECK: Shows anterior throat supple without palpable lymphadenopathy noted. Swallow reflex symmetrical. CHEST: Shows normal on inspection. Breath sounds are clear to auscultation bilaterally. HEART: Shows S1, S2 clear. No murmurs auscultated. ABDOMEN: Soft, nontender, nondistended. No palpable organomegaly is noted. No rebound or guarding demonstrated. BACK: Shows spine grossly in the midline, slight flattening of cervical lordotic curvature, normal thoracic kyphotic curvature and some slight flattening of lumbar lordotic curvature as well. Cervical paraspinous muscle shows symmetrical on inspection, with palpation shows some moderate tenderness diffusely bilaterally, but only diffusely without radiation. The patient has good rotational motion of cervical spine, some minor tenderness with extension, but not with forward flexion. Right and left lateral rotation past 45 degrees. The patient's low back shows lumbar paraspinous muscles symmetrical on inspection, with palpation shows some moderate tenderness inferiorly in the right greater than left lower lumbar paraspinous musculature, but without radiation, without atrophy or hypertrophy. The patient has good rotational motion of lumbar spine, both laterally as well as extension and flexion without significant difficulty. EXTREMITIES: Upper extremities show deep tendon reflexes at 2+ in the biceps, triceps tendons. Motor exam is approximately 4 on a scale of 5 with right panel lay up worker strength and 5/5 on the left. Peripheral pulses are 2+ radial distribution. The patient's lower extremities show deep tendon reflexes 1+/4 in the patellar and tendo calcaneus tendons. Motor exam is 4/5 on the right, 5/5 on the left with dorsiflexion, extension, quadriceps and hamstring flexion. Peripheral pulses are 1+ posterior tibia. No peripheral edema is noted in the lower extremities as well. The patient does have a mild straight leg raise, which is positive on the right side at about 40 degrees, decreased with knee flexion, left side is negative. PLAN: Options were discussed with the patient. The patient's old chart was reviewed as his current medication regimen updated. Current review of systems updated today as well. We will proceed with a cervical epidural steroid injection today with fluoroscopic guidance. Risks were again discussed including, but not limited to, bleeding, infection, possibility of epidural hematoma, subsequent neurological compromise, dural puncture, headaches, spinal cord and/or nerve damage, side effects of steroid medication and poor results regarding pain control. The patient understands and wished to proceed. The patient will return to the clinic in approximately 2 weeks. We will preauthorize the patient for lumbar epidural steroid injection. He has done very well with these in the past. He has a L5-S1 right-sided radiculopathy and we will preauthorize for a translaminar approach at the L5-S1 level as he has done very well with these in the past, most recently in April 2017 with 80% improvement for several months following that injection. The patient will return to clinic as scheduled. We will plan on lumbar epidural steroid injection on his return as noted. BRADY CHAMBERLAIN MD DR: CHARISSE/david JOB#: [id number] / [id number]
== END | disposition home or self-care (01) ==
LOC: PNCL 07:55
PROVIDERS: ATTEND Anesthesiology
DX: M50.123 Cervical disc disorder at C6-C7 level with radiculopathy (principal); M96.1 Postlaminectomy syndrome, not elsewhere classified; M51.16 Intervertebral disc disorders with radiculopathy, lumbar region; M48.26 Kissing spine, lumbar region; Z88.8 Allergy status to other drugs, medicaments and biological substances
CPT/HCPCS: 62321; J1030; J1040; Q9965

== ENCOUNTER → 2019-03-15 | Outpatient (CLI) | payer OTHER ==
[2017-05-30 13:18] VITALS: BP 133/61
--- NOTE | 2019-03-16 01:02 | PAIN ---
DATE OF SERVICE: 03/15/2019 PROGRESS NOTE FOR PAIN CLINIC DIAGNOSES: Lumbar radiculopathy with lumbar degenerative disk disease and lumbar spondylosis. HISTORY OF PRESENT ILLNESS: The patient is a 74-year-old male who returns for followup status post cervical epidural steroid injection x 1. The patient reports about 100% improvement with that injection in his back and right lower extremity has been more painful, though we had preauthorized for lumbar epidural steroid injection, which he had obtained and would like to proceed today. The patient reports still pain in the low back, right posterior gluteus, posterior thighs, posterior calf. He reports it is an 8 on a scale of 10 at its worst, 5 on average, 2 at its least and is a 2 today. The patient reports it is dull, aching and shooting at times, worse with walking and standing, better with sitting or lying down. The patient reports no new motor or sensory deficits, no new bowel or bladder incontinence or other complaints. The patient reports he is better with lying. He is sleeping well at night, especially with his neck feeling better. The patient reports no new motor or sensory deficits, no new bowel or bladder incontinence. PHYSICAL EXAMINATION: VITAL SIGNS: The patient's blood pressure is 119/74, pulse 83, respirations 18 and temperature is 98.2 degrees Fahrenheit. Height 6 feet 1 inch and weight is 218 pounds. GENERAL: The patient is awake, alert, oriented, appropriate, very pleasant demeanor. HEENT EXAMINATION: Shows normocephalic, atraumatic. Extraocular muscles are intact and symmetrical. The patient wears eye glasses. Oral cavity, mucous membranes moist and pink. Dentition is intact. NECK: Shows anterior throat supple, without palpable lymphadenopathy noted. Swallow reflex is symmetrical. CHEST: Shows normal on inspection. Breath sounds are clear to auscultation bilaterally. HEART: Shows S1, S2 clear. No murmurs auscultated. ABDOMEN: Soft, obese, nontender and nondistended. No palpable organomegaly is noted. No rebound or guarding demonstrated. BACK: Shows spine grossly in the midline. Normal-appearing thoracic kyphosis and lumbar lordotic curvature. Lumbar paraspinous muscle shows symmetrical on inspection. On palpation, there is some moderate tenderness diffusely bilaterally, but only diffusely, without radiation. The patient has good rotational motion of the lumbar spine, both laterally as well as extension and flexion without difficulty. EXTREMITIES: Lower extremities show deep tendon reflexes at 1+ in the patella and tendo calcaneus tendons. Motor exam is approximately 4 on a scale of 5 on the right with dorsiflexion and extension and 5/5 on the left. Peripheral pulses are 1+ posterior tibial. No peripheral edema is noted bilaterally. Options were discussed with the patient. The patient's old chart was reviewed as was his current medication regimen updated. Current review of systems was updated today as well. We will proceed with a lumbar epidural steroid injection today with fluoroscopic guidance. Risks were again discussed including, but not limited to bleeding, infection, possibility of epidural hematoma and subsequent neurological compromise, dural puncture, headaches, spinal cord and/or nerve damage, side effects to steroid medication and poor results regarding pain control. The patient understands and wishes to proceed. The patient will return to the clinic in approximately 2 weeks for followup. He was counseled on his return appointment, activity level and side effects to be aware of. DIAGNOSES: Lumbar radiculopathy with lumbar degenerative disk disease and lumbar spondylosis. PROCEDURE: Lumbar epidural steroid injection in a translaminar approach at the L5-S1 level using C-arm fluoroscopic guidance under sterile prep and drape using local anesthetic. MEDICATION INJECTED: A total of 120 mg of Depo-Medrol plus 10 mL of preservative-free normal saline. CONDITION AT DISCHARGE: Stable. The patient tolerated the procedure well, had no complications. BRADY CHAMBERLAIN MD DR: CHARISSE/david JOB#: [id number] / [id number]
== END | disposition home or self-care (01) ==
LOC: PNCL 07:47
PROVIDERS: ATTEND Anesthesiology
DX: M51.16 Intervertebral disc disorders with radiculopathy, lumbar region (principal); M47.26 Other spondylosis with radiculopathy, lumbar region; Z88.8 Allergy status to other drugs, medicaments and biological substances
CPT/HCPCS: 62323; J1030; J1040; Q9965

== ENCOUNTER → 2019-03-22 | Outpatient (CLI) | payer OTHER ==
[2017-05-30 13:18] VITALS: BP 133/61
[~2019-03-22] MED LIST changes: +BUPIVACAINE MPF 0.25% 10 ML VIAL. ONE; -IOHEXOL 180 MG/ML 10 ML VIAL. ONE; -methylPREDNISolone ACETATE 80 MG/ML VIAL. ONE
--- NOTE | 2019-03-22 23:05 | PAIN ---
DATE OF SERVICE: 03/22/2019 PROGRESS NOTE FOR PAIN CLINIC: DIAGNOSES: 1. Lumbar radiculopathy with lumbar degenerative disk disease, lumbar spondylosis. 2. Cervical radiculopathy with cervical degenerative disk disease and post-cervical laminectomy syndrome. 3. Right hip joint pain with osteoarthritis. 4. Right hand carpometacarpal joint pain with osteoarthritis. HISTORY OF PRESENT ILLNESS: The patient is a 74-year-old male, who returns for followup status post lumbar epidural steroid injection on 03/15/2019. The patient did very well with about 80% improvement for the first 2 weeks or so and reports the pain is beginning to return now in the low back, more on the right side with radiation to posterior gluteus, posterior thigh and calf with walking and standing. Initially, he was doing much better with walking, was doing activities at home, traveling with much greater ease and comfort, still sleeping well at night, feels much better with sitting or lying down, following dermatological L5-S1 distribution on the right side, is beginning to return. The patient's chief complaint today, however, is his right hand, which I discussed with him previously at the base of the thumb and has significant pain in this area and has for some time. We will proceed with a carpometacarpal joint injection today, but again the pain in the low back is beginning to return. The patient describes the pain in the hands is a burning pain and in the low back it is a shooting pain, aching and dull and tight across the low back. The patient reports his pain in the last week was worst, it was a 9, average at 5, and at its least 3 or 4 and is a 5 today in the back as well as the right hand. The patient reports no new motor or sensory deficits, no new bowel or bladder incontinence. PHYSICAL EXAMINATION: VITAL SIGNS: The patient's blood pressure 120/77, pulse 67, respirations 18, temperature 98.2 degrees Fahrenheit, height 6 feet 1 inch, weight is 214 pounds. GENERAL: The patient is awake, alert, oriented, appropriate, very pleasant demeanor. HEENT: Shows normocephalic, atraumatic. Extraocular muscles are intact and symmetrical. The patient is wearing eyeglasses. Oral cavity: Mucous membranes moist and pink. Dentition is intact. NECK: Shows anterior throat supple without palpable lymphadenopathy noted. Swallow reflex is symmetrical. CHEST: Shows breath sounds clear to auscultation bilaterally. HEART: Shows S1, S2 clear. No murmurs auscultated. ABDOMEN: Soft, nontender, nondistended. No palpable organomegaly is noted. No rebound or guarding demonstrated. BACK: Shows spine grossly in the midline. Some slight flattening of cervical lordotic curvature, normal thoracic kyphotic curvature, mild flattening of lumbar lordotic curvature. Lumbar paraspinous muscle shows symmetrical on inspection, with palpation shows some moderate tenderness bilaterally diffusely in the low lumbar distribution without radiation. The patient has good rotational motion both laterally as well as extension and flexion. EXTREMITIES: The patient's lower extremities show deep tendon reflexes at 1+ in the patellar and tendo-calcaneus tendons. Motor exam is 4 on a scale of 5 on the right with dorsiflexion and extension, 5/5 on the left. Peripheral pulses are 1+ posterior tibia. No peripheral edema is noted. The patient's upper extremities show right hand with significant pain in the base of the thumb at the carpometacarpal joint on the thumb itself, significant pain with palpation over the posterior aspect of the joint, less so on the middle. The patient is able to move the joint without significant restriction, although with pain when opposing the thumb and the fifth finger. Peripheral pulses are 2+ radial, 1+ posterior tibial. No peripheral edema is noted bilaterally. Options were discussed with the patient. The patient's old chart was reviewed as his current medication regimen updated. Current review of systems updated today as well. We will proceed with right carpometacarpal joint injection with fluoroscopic guidance today. Risks were discussed including but not limited to bleeding, infection, possibility of intravascular injection sequelae, spread of local anesthetic and numbness, side effects of steroid medication, exposure to fluoroscopy and poor results regarding pain control. The patient understands and wished to proceed. The patient will return to clinic in approximately 2 weeks. We discussed a repeat lumbar epidural steroid injection at L5-S1 dermatomal radiculopathy on the right for preapproval. Again, the patient did very well with about 80% improvement for several weeks following the last injection. Pain is returning now in a radicular pattern. We will plan on a translaminar at the L5-S1 level lumbar epidural steroid injection on his return. The patient will continue to do stretching and strengthening exercises, low back. Continue with walking daily and exercise as tolerated. DIAGNOSIS: Primary osteoarthritis, right first carpometacarpal joint. PROCEDURE: Right first carpometacarpal joint injection using C-arm fluoroscopic guidance under sterile prep and drape using local anesthetic. MEDICATION INJECTED: A total of 2 mL of 0.25% bupivacaine, 40 mg Depo-Medrol and 0.5 mL of contrast. CONDITION AT DISCHARGE: Stable. The patient tolerated the procedure well, had no complications. BRADY CHAMBERLAIN MD DR: CHARISSE/nts JOB#: [id number] / [id number]
== END | disposition home or self-care (01) ==
LOC: PNCL 08:09
PROVIDERS: ATTEND Anesthesiology
DX: M18.11 Unilateral primary osteoarthritis of first carpometacarpal joint, right hand (principal); M16.11 Unilateral primary osteoarthritis, right hip; M51.16 Intervertebral disc disorders with radiculopathy, lumbar region; M47.26 Other spondylosis with radiculopathy, lumbar region; M96.1 Postlaminectomy syndrome, not elsewhere classified; M50.10 Cervical disc disorder with radiculopathy, unspecified cervical region; Z88.8 Allergy status to other drugs, medicaments and biological substances
CPT/HCPCS: 20600; 77002; J1030; J3490

== ENCOUNTER 2019-03-25 08:40 | Emergency (ER) | payer OTHER ==
[~2019-03-25] VITALS: Ht 180.3 cm; Wt 97.1 kg
[~2019-03-25 08:40] MED LIST changes: -BUPIVACAINE MPF 0.25% 10 ML VIAL. ONE; -PEG1POWD PO; -methylPREDNISolone ACETATE 40 MG/ML VIAL. ONE
--- NOTE | 2019-03-25 10:27 | PHYS DOC ---
Past Medical History Past Medical History: A-Fib, Depression, High Cholesterol Past Surgical History: Knee Replacement, Other Additional Past Surgical Histo: bilat knee replacement, R shoulder replaced, R great toe frx repair Alcohol Use: None Drug Use: None Adult General Chief Complaint Chief Complaint: CONTISPATION [facility] HPI Patient is a 74 year old male with history of constipation presents to the ED complaining of constipation 4 days ago. States that over the last 4 days he has not had a stool. States that he usually goes every other day. He states he's tried laxatives at home without relief. States he came in because he started having abdominal pain. Patient is worried that he might be obstructed. No history of obstruction in the past. Describes the pain as pressure. Rates the pain as 5/10. Denies fever, nausea/vomiting, chest pain, shortness of breath, diarrhea, blood in stool, recent travel, change in diet or headache. Review of Systems Review of Systems Constitutional: Denies fever or chills [] Eyes: Denies change in visual acuity, redness, or eye pain [] HENT: Denies nasal congestion or sore throat [] Respiratory: Denies cough or shortness of breath [] Cardiovascular: No additional information not addressed in HPI [] GI: Complains of abdominal pain and constipation. Denies nausea, vomiting, bloody stools or diarrhea [] : Denies dysuria or hematuria [] Musculoskeletal: Denies back pain or joint pain [] Integument: Denies rash or skin lesions [] Neurologic: Denies headache, focal weakness or sensory changes [] All other systems were reviewed and found to be within normal limits, except as documented in this note. Allergies Allergies Allergies Coded Allergies Type Severity Reaction Last Updated Verified iodine Allergy Intermediate HIVES 05/29/17 Yes Physical Exam Physical Exam Constitutional: Well developed, well nourished, no acute distress, non-toxic appearance. [] HENT: Normocephalic, atraumatic Eyes: PERRLA, EOMI, conjunctiva normal, no discharge. [] Neck: Normal range of motion, no tenderness, supple, no stridor. [] Cardiovascular:Heart rate regular rhythm, no murmur [] Lungs & Thorax: Bilateral breath sounds clear to auscultation [] Abdomen: Bowel sounds normal, soft, mild diffuse abdominal tenderness, no masses, no pulsatile masses. [] Skin: Warm, dry, no erythema, no rash. [] Back: No tenderness, no CVA tenderness. [] Extremities: No tenderness, no cyanosis, no clubbing, ROM intact, no edema. [] Neurologic: Alert and oriented X 3, normal motor function, normal sensory function, no focal deficits noted. [] Psychologic: Affect normal, judgement normal, mood normal. [] Current Patient Data Vital Signs Vital Signs Date Time Temp Pulse Resp B/P (MAP) Pulse Ox O2 Delivery O2 Flow Rate FiO2 03/25/19 12:45 63 16 131/91 (104) 96 Room Air 03/25/19 10:11 97.9 97.9 Lab Values Laboratory Tests Test 03/25/19 11:10 White Blood Count 7.5 x10^3/uL (4.0-11.0) Red Blood Count 5.07 x10^6/uL (4.30-5.70) Hemoglobin 15.6 g/dL (13.0-17.5) Hematocrit 46.5 % (39.0-53.0) Mean Corpuscular Volume 92 fL (79-100) Mean Corpuscular Hemoglobin 31 pg (25-35) Mean Corpuscular Hemoglobin Concent 34 g/dL (31-37) Red Cell Distribution Width 14.0 % (11.5-14.5) Platelet Count 249 x10^3/uL (140-400) Neutrophils (%) (Auto) 69 % (31-73) Lymphocytes (%) (Auto) 23 % (24-48) L Monocytes (%) (Auto) 5 % (0-9) Eosinophils (%) (Auto) 2 % (0-3) Basophils (%) (Auto) 1 % (0-3) Neutrophils # (Auto) 5.2 x10^3uL (1.8-7.7) Lymphocytes # (Auto) 1.7 x10^3/uL (1.0-4.8) Monocytes # (Auto) 0.4 x10^3/uL (0.0-1.1) Eosinophils # (Auto) 0.1 x10^3/uL (0.0-0.7) Basophils # (Auto) 0.1 x10^3/uL (0.0-0.2) Sodium Level 135 mmol/L (136-145) L Potassium Level 4.0 mmol/L (3.5-5.1) Chloride Level 98 mmol/L (98-107) Carbon Dioxide Level 27 mmol/L (21-32) Anion Gap 10 (6-14) Blood Urea Nitrogen 18 mg/dL (8-26) Creatinine 1.0 mg/dL (0.7-1.3) Estimated GFR (Cockcroft-Gault) 73.5 BUN/Creatinine Ratio 18 (6-20) Glucose Level 103 mg/dL (70-99) H Calcium Level 8.9 mg/dL (8.5-10.1) Total Bilirubin 0.6 mg/dL (0.2-1.0) Aspartate Amino Transferase (AST) 16 U/L (15-37) Alanine Aminotransferase (ALT) 30 U/L (16-63) Alkaline Phosphatase 99 U/L (46-116) Total Protein 7.4 g/dL (6.4-8.2) Albumin 3.9 g/dL (3.4-5.0) Albumin/Globulin Ratio 1.1 (1.0-1.7) Lipase 88 U/L (73-393) Laboratory Tests 03/25/19 11:10 Laboratory Tests 03/25/19 11:10 EKG EKG [] Radiology/Procedures Radiology/Procedures []CT ABDOMEN PELVIS WO CONTRAST Clinical Indication: Constipation, abdominal pain. Comparison: None. Technique: Helical CT imaging of the abdomen and pelvis is performed without IV or oral contrast. Findings: Evaluation of solid organs and bowel is limited without oral and IV contrast, decreasing sensitivity for detection of pathology. Trace right pleural effusion or pleural thickening. Atelectasis or scarring in the bilateral lung bases. Cardiac size is normal. There are several small hypodensities in the liver, too small to further characterize. There is a vague hypodensity in segment 6 measuring 1.9 x 2.5 cm, image 22. Gallbladder, spleen, pancreas, adrenal glands, and abdominal aorta are normal. The right kidney is normal. There is no hydronephrosis. 3.5 cm left renal cyst. Stomach unremarkable. Small fat-containing umbilical hernia. No dilated small bowel. Several small bowel loops are fluid-filled. The appendix is normal. There is moderate sigmoid colon diverticulosis. No colon wall thickening is identified. There is fluid in the ascending and transverse colon. No abdominal adenopathy or free fluid. Urinary bladder is distended, otherwise normal. There are radiation seeds or fiducials in the prostate. No pelvic free fluid. Question prior left inguinal hernia repair, possible hernia mesh plug, image 80. Question fat-containing left spigelian or incisional hernia. Vacuum disc phenomenon L4/L5 and L5/S1. IMPRESSION: 1. No acute abdominal or pelvic abnormality. 2. Moderate distal colon diverticulosis without diverticulitis. 3. Trace right pleural effusion or pleural thickening. 4. Vague hypodensity in segment 6 of the liver. Recommend outpatient MR abdomen with and without contrast. Course & Med Decision Making Course & Med Decision Making Pertinent Labs and Imaging studies reviewed. (See chart for details) []Discussed imaging findings with patient. Patient's pain improved in the ED. States he's feeling much better. Discussed imaging results and follow up outpatient for MRI of abdomen with and without contrast. Will also prescribed GoLYTELY outpatient for patient's constipation at his request. Discussed symptomatic treatment, [id number] medications and hydration. Discussed dietary changes as well. Provided contact information and education for follow- up. Discussed reasons to return to the ED. Patient understands and agrees with plan. Dragon Disclaimer Dragon Disclaimer This electronic medical record was generated, in whole or in part, using a voice recognition dictation system. Departure Departure Impression: Primary Impression: Abdominal pain Additional Impression: Constipation Disposition: 01 HOME, SELF-CARE Condition: IMPROVED Referrals: RIDGE LUNSFORD MD (PCP) Patient Instructions: Abdominal Pain, Constipation, Adult Scripts Peg 3350/Na Sulf,Bicarb,Cl/Kcl (GOLYTELY PACKET) 1 Each Powd.pack 1 EACH PO ONCE, #1 PKT Prov: VICENTE PIMENTEL 03/25/19 Problem Qualifiers VICENTE PIMENTEL March 25, 2019 10:27
[2019-03-25 11:29] LABS: BASO # 0.1 x10^3/uL (0.0-0.2); BASO % 1 % (0-3); EOS # 0.1 x10^3/uL (0.0-0.7); EOS % 2 % (0-3); HEMATOCRIT 46.5 % (39.0-53.0); HEMOGLOBIN 15.6 g/dL (13.0-17.5); LYMPH # 1.7 x10^3/uL (1.0-4.8); LYMPH % 23 % (24-48); MEAN CORPUSCULAR HEMOGLOBIN 31 pg (25-35); MEAN CORPUSCULAR HGB CONC 34 g/dL (31-37); MEAN CORPUSCULAR VOLUME 92 fL (79-100); MONO # 0.4 x10^3/uL (0.0-1.1); MONO % 5 % (0-9); NEUT # 5.2 x10^3uL (1.8-7.7); NEUT % 69 % (31-73); PLATELET COUNT 249 x10^3/uL (140-400); RED BLOOD COUNT 5.07 x10^6/uL (4.30-5.70); WHITE BLOOD COUNT 7.5 x10^3/uL (4.0-11.0)
[2019-03-25 11:34] LABS: CALCIUM 8.9 mg/dL (8.5-10.1); GFR 73.5
--- NOTE | 2019-03-25 11:36 | RAD ---
PQRS Compliance Statement: One or more of the following individualized dose reduction techniques were utilized for this examination: 1. Automated exposure control 2. Adjustment of the mA and/or kV according to patient size 3. Use of iterative reconstruction technique CT ABDOMEN PELVIS WO CONTRAST Clinical Indication: Constipation, abdominal pain. Comparison: None. Technique: Helical CT imaging of the abdomen and pelvis is performed without IV or oral contrast. Findings: Evaluation of solid organs and bowel is limited without oral and IV contrast, decreasing sensitivity for detection of pathology. Trace right pleural effusion or pleural thickening. Atelectasis or scarring in the bilateral lung bases. Cardiac size is normal. There are several small hypodensities in the liver, too small to further characterize. There is a vague hypodensity in segment 6 measuring 1.9 x 2.5 cm, image 22. Gallbladder, spleen, pancreas, adrenal glands, and abdominal aorta are normal. The right kidney is normal. There is no hydronephrosis. 3.5 cm left renal cyst. Stomach unremarkable. Small fat-containing umbilical hernia. No dilated small bowel. Several small bowel loops are fluid-filled. The appendix is normal. There is moderate sigmoid colon diverticulosis. No colon wall thickening is identified. There is fluid in the ascending and transverse colon. No abdominal adenopathy or free fluid. Urinary bladder is distended, otherwise normal. There are radiation seeds or fiducials in the prostate. No pelvic free fluid. Question prior left inguinal hernia repair, possible hernia mesh plug, image 80. Question fat-containing left spigelian or incisional hernia. Vacuum disc phenomenon L4/L5 and L5/S1. IMPRESSION: 1. No acute abdominal or pelvic abnormality. 2. Moderate distal colon diverticulosis without diverticulitis. 3. Trace right pleural effusion or pleural thickening. 4. Vague hypodensity in segment 6 of the liver. Recommend outpatient MR abdomen with and without contrast. Electronically signed by: Jose Manuel Munoz MD (03/25/2019 11:33 AM) [id number]
[2019-03-25 11:40] LABS: ALBUMIN 3.9 g/dL (3.4-5.0); ALBUMIN/GLOBULIN RATIO 1.1 (1.0-1.7); TOTAL BILIRUBIN 0.6 mg/dL (0.2-1.0); TOTAL PROTEIN 7.4 g/dL (6.4-8.2)
[2019-03-25] MEDS ORDERED: PEG1POWD PO (12:24)
[2019-03-25 12:45] VITALS: BP 131/91
== END 2019-03-25 12:44 | disposition home or self-care (01) ==
LOC: ER 08:40
DX: K59.00 Constipation, unspecified (principal); I48.91 Unspecified atrial fibrillation; E78.00 Pure hypercholesterolemia, unspecified; K57.30 Diverticulosis of large intestine without perforation or abscess without bleeding; Z88.8 Allergy status to other drugs, medicaments and biological substances
CPT/HCPCS: 36415; 74176; 80053; 83690; 85025; 99285-25

== ENCOUNTER → 2019-04-05 | Outpatient (CLI) | payer OTHER ==
[2019-03-25 12:45] VITALS: BP 131/91
[~2019-04-05] MED LIST changes: +IOHEXOL 180 MG/ML 10 ML VIAL. ONE; +PEG1POWD PO; +methylPREDNISolone ACETATE 40 MG/ML VIAL. ONE; +methylPREDNISolone ACETATE 80 MG/ML VIAL. ONE
--- NOTE | 2019-04-05 12:31 | PAIN ---
DATE OF SERVICE: 04/05/2019 PROGRESS NOTE FOR PAIN CLINIC DIAGNOSES: 1. Lumbar radiculopathy with lumbar degenerative disk disease and lumbar spondylosis. 2. Cervical radiculopathy with cervical degenerative disk disease and post-cervical laminectomy syndrome. HISTORY OF PRESENT ILLNESS: The patient is a 74-year-old male who returns for followup status post cervical epidural steroid injection x 1 and lumbar epidural steroid injection x 1. On his last visit, he had right carpometacarpal injection with about 99% improvement. The patient reports his chief complaint now is his back and lower extremities, mostly on the right side, posterior gluteus, posterior thigh, posterior calf. The patient reports it is aching and dull, shooting, 9 on a scale of 10 at its worst on the past week, 7 on average, 2 at its least and is a 7 today. The patient reports no new motor or sensory deficits, better with sitting or lying down, worse with walking and standing. Usually, he sleeps about 8-9 hours, does not disturb him from sleep. The patient reports no new motor or sensory deficits, no new bowel or bladder incontinence. PHYSICAL EXAMINATION: VITAL SIGNS: The patient's blood pressure 128/75, pulse 80, respirations 16, temperature 97.8 degrees Fahrenheit, height 6 feet, weight is 215 pounds. GENERAL: The patient is awake, alert, oriented, appropriate, very pleasant demeanor. HEENT: Shows normocephalic and atraumatic. Extraocular movements are intact and symmetrical. Oral cavity: Mucous membranes are moist and pink. Dentition is intact. NECK: Shows anterior throat supple without palpable lymphadenopathy noted. Swallow reflex is symmetrical. CHEST: Shows normal on inspection. Breath sounds are clear to auscultation bilaterally. HEART: Shows S1, S2 clear. No murmurs auscultated. ABDOMEN: Soft, nontender, nondistended. No palpable organomegaly is noted. No rebound or guarding demonstrated. BACK: Shows spine grossly in the midline. Slight flattening of cervical lordotic curvature, normal thoracic kyphotic curvature and mild flattening of lumbar lordotic curvature. Lumbar paraspinous muscle shows symmetrical on inspection, on palpation shows some moderate tenderness diffusely in the low lumbar distribution, more on the right than the left, but present bilaterally without asymmetry, atrophy or hypertrophy. No trigger points. No tenderness over the spinous processes, sacrum or sacroiliac regions. The patient has good rotational motion of lumbar spine, both laterally as well as extension and flexion without significant difficulty. EXTREMITIES: Lower extremities show deep tendon reflexes at 1+ in the patellar and tendo-calcaneus tendons. Motor exam is strong with 4 on a scale of 5 on the right dorsiflexion and extension and 5/5 on the left. Peripheral pulses are 1+ posterior tibia. No peripheral edema is noted bilaterally. Options were discussed with the patient. The patient's old chart was reviewed as his current medication regimen updated. Current review of systems updated today as well. We will proceed with a lumbar epidural steroid injection today. It is the third in a series total. Risks discussed including, but not limited to bleeding, infection, possibility of epidural hematoma, subsequent neurological compromise, dural puncture, headaches, spinal cord and/or nerve damage, side effects of steroid medication and poor results regarding pain control. The patient understands and wished to proceed. The patient will return to the clinic in approximately 2 weeks for followup, was counseled on return appointment, activity level and side effects to be aware of. DIAGNOSIS: Lumbar radiculopathy with lumbar degenerative disk disease and lumbar spondylosis. PROCEDURE: Lumbar epidural steroid injection, translaminar approach at L5-S1 level using C-arm fluoroscopic guidance under sterile prep and drape using local anesthetic. MEDICATION INJECTED: A total of 120 mg Depo-Medrol plus 10 mL of preservative-free normal saline and 2 mL of Isovue for contrast. CONDITION AT DISCHARGE: Stable. The patient tolerated the procedure well, had no complications. BRADY CHAMBERLAIN MD DR: CHARISSE/david JOB#: [id number] / [id number]
== END | disposition home or self-care (01) ==
LOC: PNCL 08:07
PROVIDERS: ATTEND Anesthesiology
DX: M51.16 Intervertebral disc disorders with radiculopathy, lumbar region (principal); M47.26 Other spondylosis with radiculopathy, lumbar region; M96.1 Postlaminectomy syndrome, not elsewhere classified; M50.10 Cervical disc disorder with radiculopathy, unspecified cervical region; Z88.8 Allergy status to other drugs, medicaments and biological substances
CPT/HCPCS: 62323; J1030; J1040; Q9965

== ENCOUNTER → 2019-06-11 | Outpatient (CLI) | payer OTHER ==
[~2019-06-11] MED LIST changes: -IOHEXOL 180 MG/ML 10 ML VIAL. ONE; -methylPREDNISolone ACETATE 40 MG/ML VIAL. ONE; -methylPREDNISolone ACETATE 80 MG/ML VIAL. ONE
--- NOTE | 2019-06-11 17:13 | KCIC ---
BRAIN W/O CONTRAST Date: 06/11/2019 4:15 PM Indication: Vertigo, syncope Comparison: None. Technique: Multiplanar multisequence MRI of the brain was performed without intravenous contrast using the standard protocol. Findings: No acute infarct. No acute or chronic hemorrhage. The ventricles are normal in size and configuration without hydrocephalus. Mild scattered FLAIR hyperintensities in the subcortical and periventricular deep white matter, a nonspecific finding, most commonly seen with chronic small vessel ischemic disease. Mild generalized cerebral and cerebellar volume loss. The scalp and calvarium are normal. The pituitary and sella are normal. No Chiari malformation. Incompletely characterized degenerative spondylosis of the visualized upper cervical spine. The visualized orbits and globes are normal. Mild ethmoid sinus mucosal thickening. The mastoid air cells are clear. Normal flow voids within the vertebral, basilar, and internal carotid arteries indicating patency. IMPRESSION: No acute infarct, hemorrhage, mass, or hydrocephalus. Mild chronic small vessel ischemic disease and age-appropriate cerebral volume loss. Electronically signed by: Wellington Sharp MD (06/11/2019 5:10 PM) [id number]
== END | disposition home or self-care (01) ==
LOC: KCIC MRI 15:50
PROVIDERS: ATTEND Family Medicine
DX: I67.82 Cerebral ischemia (principal); J34.89 Other specified disorders of nose and nasal sinuses; I48.91 Unspecified atrial fibrillation
CPT/HCPCS: 70551

== ENCOUNTER → 2019-10-06 | Outpatient (CLI) | payer OTHER ==
[~2019-10-06] MED LIST changes: +BUPIVACAINE MPF 0.25% 10 ML VIAL. ONE; +SIMV20TA18 PO; -SIMV20TA3 PO; +methylPREDNISolone ACETATE 40 MG/ML VIAL. ONE
--- NOTE | 2019-10-07 05:29 | PAIN ---
DATE OF SERVICE: 10/06/2019 PROGRESS NOTE FOR PAIN CLINIC DIAGNOSES: 1. Lumbar radiculopathy with lumbar degenerative disk disease, lumbar spondylosis. 2. Cervical radiculopathy with cervical degenerative disk disease and cervical post-laminectomy syndrome. 3. Right hip joint pain with primary osteoarthritis. 4. Right hand carpometacarpal joint pain with osteoarthritis. HISTORY OF PRESENT ILLNESS: The patient is a 74-year-old male who returns for a followup status post cervical epidural steroid injection and lumbar epidural steroid injection with near 100% improvement with each of these for several months, most recently those were in February of this year with pain returning now in the low back and the right lower extremity in a radicular fashion in posterior gluteus, posterior thigh and posterior calf. The patient reports his main complaint today is the right hand pain that he is having with increase in his activity at work as well as at home, doing some work on an old barn that he has been repairing using a lot of hand tools and power tools which is causing the pain in his hands to get worse. The patient reports pain in his low back and his neck also present; the low back is radicular into the right leg and the neck is radicular into both upper extremities. The patient reports the pain is burning pain, sharp and achy in the back and leg, also in his right hand. The patient reports it is a 6 on a scale of 10 at its worst, 6 on average, 2 at its least and is a 6 today. The patient reports initially it was increased with distance walking, doing household activities and work activities with greater ease and comfort, traveling with greater ease, better with sitting or lying down, does not keep him up from sleep at night. The patient reports no new motor or sensory deficits, no new bowel or bladder incontinence or other complaints. PHYSICAL EXAMINATION: VITAL SIGNS: The patient's blood pressure is 121/64, pulse 73, respirations 16, temperature 97.9 degrees Fahrenheit, height is 6 feet, weight is 201 pounds. GENERAL: The patient is awake, alert, oriented, appropriate, very pleasant demeanor. HEENT: Shows normocephalic, atraumatic. Extraocular movements are intact and symmetrical. Oral cavity: Mucous membranes moist and pink. Dentition is intact. NECK: Shows supple without palpable lymphadenopathy noted. Swallow reflex symmetrical. CHEST: Shows normal on inspection. Breath sounds clear to auscultation bilaterally. HEART: Shows S1, S2 clear. No murmurs auscultated. ABDOMEN: Soft, nontender, nondistended. BACK: Shows spine grossly in the midline. Cervical paraspinous muscle shows symmetrical on inspection with some moderate tenderness with palpation in the inferior aspect of the cervical paraspinous musculature. Lumbar paraspinous muscle shows symmetrical, but with moderate tenderness bilaterally in the upper, middle and lower distribution of paraspinous muscles. The patient has good rotational motion of the lumbar spine as well as the cervical spine without increase in pain, both laterally as well as extension and flexion. The patient's lower extremities show deep tendon reflexes 1+ in the patellar and tendo-calcaneus tendons. Motor exam is approximately 4 on a scale of 5 on the right, 5/5 on the left. The patient's upper extremities show deep tendon reflexes 2+ biceps and triceps tendons. Court Interpreter strength is strong with 5/5 water control station engineer strength, biceps and triceps flexion bilaterally. The patient's right hand shows some significant tenderness with palpation over the first carpometacarpal joint, both anteriorly and posteriorly as well as over the fourth carpometacarpal joint at the wrist with significant pain with the patient withdrawing his hand from the examination pressure. Peripheral pulses are 2+ radial distribution. No peripheral edema is noted. Options were discussed with the patient. The patient's old chart was reviewed as his current medication regimen updated. Current review of systems updated today as well. We will proceed with right carpometacarpal joint injections under sterile prep and drape. Risks were discussed including but not limited to bleeding, infection, possibility of intravascular injection sequelae, spread of local anesthetic and numbness, side effects of steroid medication and poor results regarding pain control. The patient understands and wished to proceed. The patient will return to clinic in approximately 2 weeks. We will preauthorize the patient for lumbar epidural steroid injection. He did very well with his last injection about 75-80% improvement with pain returning in L5-S1 radicular pattern on the right side once again and we will plan on the L5-S1 translaminar L5 lumbar epidural steroid injection on his return. DIAGNOSIS: Right hand carpometacarpal joint pain. PROCEDURE: Right carpometacarpal joint injection using sterile prep and drape. MEDICATION INJECTED: A total of 2 mL of 0.25% bupivacaine, total of 40 mg Depo-Medrol after negative aspiration. CONDITION AT DISCHARGE: Stable. The patient tolerated the procedure well, had no complications. BRADY CHAMBERLAIN MD DR: CHARISSE/david JOB#: [id number] / [id number]
== END ==
LOC: PNCL 12:45
PROVIDERS: ATTEND Anesthesiology
DX: M19.041 Primary osteoarthritis, right hand (principal); M47.27 Other spondylosis with radiculopathy, lumbosacral region; M51.36 Other intervertebral disc degeneration, lumbar region; M96.1 Postlaminectomy syndrome, not elsewhere classified; M50.10 Cervical disc disorder with radiculopathy, unspecified cervical region
CPT/HCPCS: 20600; J1030; J3490

== ENCOUNTER → 2019-10-25 | Outpatient (CLI) | payer OTHER ==
[~2019-10-25] MED LIST changes: -ALFU10TA3 PO; +ALFU10TA4 PO; -BUPIVACAINE MPF 0.25% 10 ML VIAL. ONE; +IOHEXOL 180 MG/ML 10 ML VIAL. ONE; +methylPREDNISolone ACETATE 80 MG/ML VIAL. ONE
--- NOTE | 2019-10-25 15:02 | PAIN ---
DATE OF SERVICE: 10/25/2019 PROGRESS NOTE FOR PAIN CLINIC DIAGNOSES: Lumbar radiculopathy with lumbar degenerative disk disease and lumbar spondylosis. HISTORY OF PRESENT ILLNESS: The patient is a 74-year-old male who returns for followup status post lumbar epidural steroid injections, most recently on 04/05/2019. The patient did very well with about 75% improvement overall, but he was last seen for right hand injection of the carpometacarpal joint, which is doing better, but only about 50% improved. The patient reports his low back and his right leg is now chief complaint. The pain radiating to posterior gluteus, posterior thigh, posterior calf, aching and dull, on and off in intensity, worse with walking, standing, changing positions, better with sitting or lying down, does not awaken him from sleep at night, but is becoming more noticeable with activity. The patient reports it is difficult with riding in a car as well and with using his right leg to operate the paddles is much more noticeable. The patient reports it is a 9 on a scale of 10 at its worst over the past week, 5 on average, 2 at its least and is a 5 today. The patient reports no new motor or sensory deficits, no new changes. Also, has some pain in the base of neck and shoulders as well. PHYSICAL EXAMINATION: VITAL SIGNS: The patient's blood pressure 113/44, pulse 66, respirations 16, temperature 97.9 degrees Fahrenheit, height 6 feet, weight is 205 pounds. GENERAL: The patient is awake, alert, oriented, appropriate, very pleasant demeanor. HEENT: Shows normocephalic, atraumatic. Extraocular movements are intact and symmetrical. Oral cavity: Mucous membranes moist and pink. Dentition is intact. NECK: Shows anterior throat supple without palpable lymphadenopathy noted. Swallow reflex symmetrical. CHEST: Shows normal on inspection. Breath sounds are clear bilaterally. HEART: Shows S1, S2 clear. No murmurs auscultated. ABDOMEN: Soft, nontender, nondistended. No palpable organomegaly is noted. No rebound or guarding demonstrated. BACK: Shows spine grossly in the midline. Normal appearing thoracic kyphosis and lumbar lordotic curvature. Lumbar paraspinous muscle shows symmetrical on inspection, on palpation shows some moderate tenderness diffusely bilaterally going diffusely without significant radiation. The patient has good rotational motion of lumbar spine, both laterally as well as extension and flexion without difficulty. EXTREMITIES: Lower extremities show deep tendon reflexes at 1+ in the patellar and tendo calcaneus tendons. Motor exam is strong with 4 on a scale of 5 on the right, 5/5 on the left with dorsiflexion, extension, quadriceps and hamstring flexion and 5/5 and equal bilaterally. Peripheral pulses are 1+ posterior tibia. No peripheral edema bilaterally. Options were discussed with the patient. The patient's old chart was reviewed as his current medication regimen updated. Current review of systems updated today as well. We will proceed with a first in this series of lumbar epidural steroid injection today with fluoroscopic guidance. Risks were again discussed including, but not limited to bleeding, infection, possibility of epidural hematoma, subsequent neurological compromise, dural puncture, headaches, spinal cord and/or nerve damage, side effects of steroid medication and poor results regarding pain control. The patient understands and wished to proceed. The patient will return to clinic in approximately 2 weeks for followup. He was counseled as to return appointment, activity level and side effects to be aware of. DIAGNOSIS: Lumbar radiculopathy with lumbar degenerative disk disease and lumbar spondylosis. PROCEDURE: Lumbar epidural steroid injection, translaminar approach L5-S1 level using C-arm fluoroscopic guidance under sterile prep and drape using local anesthetic. MEDICATION INJECTED: A total of 120 mg of Depo-Medrol plus 10 mL of preservative-free normal saline and 2 mL of contrast. CONDITION AT DISCHARGE: Stable. The patient tolerated the procedure well, had no complications. BRADY CHAMBERLAIN MD DR: CHARISSE/david JOB#: [id number] / [id number]
== END | disposition home or self-care (01) ==
LOC: PNCL 10:22
PROVIDERS: ATTEND Anesthesiology
DX: M51.16 Intervertebral disc disorders with radiculopathy, lumbar region (principal); M47.816 Spondylosis without myelopathy or radiculopathy, lumbar region
CPT/HCPCS: 62323; J1030; J1040; Q9965

== ENCOUNTER → 2019-11-08 | Outpatient (CLI) | payer OTHER ==
[~2019-11-08] MED LIST changes: +BUPIVACAINE MPF 0.25% 10 ML VIAL. ONE; -IOHEXOL 180 MG/ML 10 ML VIAL. ONE; -methylPREDNISolone ACETATE 80 MG/ML VIAL. ONE
--- NOTE | 2019-11-08 23:31 | PAIN ---
DATE OF SERVICE: 11/08/2019 PROGRESS NOTE FOR PAIN CLINIC DIAGNOSES: 1. Lumbar radiculopathy with lumbar degenerative disk disease, lumbar spondylosis. 2. Cervical radiculopathy with cervical degenerative disk disease and cervical post-laminectomy syndrome. 3. Right wrist pain with osteoarthritis, right carpometacarpal joints. HISTORY OF PRESENT ILLNESS: The patient is a 74-year-old male who returns for followup status post both lumbar and cervical epidural steroid injections, last cervical injection was 03/01/2019. The patient had near 100% better for almost 3 months following the injection. The patient reports the pain returned on the base of the neck and shoulders, right worse than left upper extremities with pain radiating into the right arm in the biceps and deltoid area into the forearm as well as the anterior aspect of the forearm and hand with some numbness and tingling on the right side, also significant pain in the right wrist itself, which is a separate issue, also some pain in the base of the neck on the left side into the right posterior shoulder blade, most noticeably. The patient reports it is worse with walking, standing, changing positions, raising his arm over his head with his right arm, raising his right shoulder and arm for repetitive motions, driving a car, does awaken him from sleep at night occasionally, but only rarely. The patient reports no new motor or sensory deficits. His main complaint today is right wrist pain and we had planned on a small joint injection on that today. The patient reports the pain is 8 on a scale of 10 at its worst over the past week, 5 on average, 2 at its least and most of this is from the neck and the right shoulder. The patient reports it is aching and sharp at times, on and off in intensity, worse with activity. PHYSICAL EXAMINATION: VITAL SIGNS: The patient's blood pressure 111/63, pulse 69, respirations 16, temperature 98.2 degrees Fahrenheit, height is 6 feet, weight is 201 pounds. GENERAL: The patient is awake, alert, oriented, appropriate, very pleasant demeanor. HEENT: Head shows normocephalic, atraumatic. The patient wears eye glasses. Extraocular movements are intact and symmetrical. Oral cavity: Mucous membranes moist and pink. NECK: Shows anterior throat is supple without palpable lymphadenopathy noted. CHEST: Shows normal on inspection. Breath sounds are clear bilaterally. HEART: Shows S1, S2 clear. BACK: Shows spine grossly in the midline. Cervical paraspinous muscle shows symmetrical on inspection, with palpation shows some moderate tenderness in the base of the neck and the right side greater than the left, but without asymmetry, no trigger points, no radiation of pain. The patient shows full rotational motion of cervical spine, both laterally as well as extension and flexion without significant pain or difficulty. EXTREMITIES: The patient's upper extremities show deep tendon reflexes at 2+ in the biceps and triceps tendons. Motor exam is strong with clinic business manager strength at approximately 5/5 on left, 4/5 on the right. This is true with bicep and tricep flexion, 5/5 on the left, 4/5 on the right. There is significant pain over the right carpometacarpal joints in the mid wrist as well as the radial aspect of the wrist with significant tenderness with even moderate palpation in both these areas. Options were discussed with the patient. The patient's old chart was reviewed as his current medication regimen updated. Current review of systems updated today as well and the patient has a clinical cervical radiculopathy in the C6-C7 dermatomal distribution on the right, also significant pain in the carpometacarpal joints, which has responded well to injection therapy in the past. The patient will proceed today with a right carpometacarpal joint injection in the radial and mid carpometacarpal wrist. Also, we will preauthorize the patient for cervical epidural steroid injection on return. The patient does have a clinical C6-C7 right sided cervical radiculopathy. I will plan on a C6-C7 translaminar approach for cervical epidural steroid injection on return. DIAGNOSIS: Primary osteoarthritis, right wrist carpometacarpal pain. PROCEDURE: Right carpometacarpal joint injection using sterile prep and drape under local anesthetic. MEDICATION INJECTED: A total of 2 mL of 0.25% bupivacaine and total of 40 mg Depo-Medrol after negative aspiration. CONDITION AT DISCHARGE: Stable. The patient tolerated procedure well, had no complications. BRADY CHAMBERLAIN MD DR: CHARISSE/david JOB#: [id number] / [id number]
== END ==
LOC: PNCL 09:42
PROVIDERS: ATTEND Anesthesiology
DX: M51.16 Intervertebral disc disorders with radiculopathy, lumbar region (principal); M47.816 Spondylosis without myelopathy or radiculopathy, lumbar region; M50.10 Cervical disc disorder with radiculopathy, unspecified cervical region; M19.031 Primary osteoarthritis, right wrist
CPT/HCPCS: 20600; 77002; J1030; J3490

== ENCOUNTER → 2020-06-28 | Outpatient (CLI) | payer MEDICARE ==
--- NOTE | 2020-06-28 09:44 | PDOC ---
Progress Note - Pain Clinic Date of Service: DOS: DATE: 06/28/20 TIME: 09:39 Diagnosis: Dx: Right wrist carpometacarpal joint pain History or Present Illness: HPI: 75-year-old male returns for follow-up status post right carpometacarpal joint injection at the thumb last seen November 08, 2019. Patient was 75% improvement for 6 months after the injection. Patient was to increase his activity at home lately using his right hand with more repetitive motions and yard work etc. Patient reports that its increasing pain at the base of the thumb on the right hand. Patient was on and off in intensity but aching and dull sharp and stabbing at times with activity patient reports average originally he was doing much better with all activities after the last injection but now pain is returning. Patient reports is 8-9 on a scale of 10 is worst 9 on average of 3 at its least and is in the 3 today patient reports no new motor or sensory deficits no new changes. Physical Exam: VS: Blood pressure 120/72 pulse 73 respirations 18 temperature is 90.60 Fahrenheit height is 5 foot 11 inches weight is 2 1 1 pounds PE: PHYSICAL EXAMINATION: GENERAL: The patient is awake, alert, oriented, appropriate, very pleasant demeanor HEENT: Shows normocephalic, atraumatic. Extraocular movements are intact and symmetrical. Oral cavity: Mucous membranes moist and pink. Dentition is intact. NECK: Shows anterior throat supple without palpable lymphadenopathy noted. Swallow reflex symmetrical. CHEST: Shows normal on inspection. Breath sounds are clear bilaterally, no rales rhonchi or wheezes auscultated. HEART: Shows S1, S2 clear. No murmurs auscultated. ABDOMEN: Soft, nontender, nondistended. No palpable organomegaly is noted. No rebound or guarding demonstrated. BACK: Shows spine grossly in the midline. Normal-appearing cervical lordotic curvature with full rotation cervical spine both laterally as well as extension and flexion without difficulty. There is slightly increased thoracic kyphosis, some minor flattening of the lumbar lordotic curvature. Lumbar paraspinous muscles show symmetrical on inspection, on palpation shows some moderate tenderness diffusely throughout the upper, middle and lower distribution of the paraspinous muscles without radiation of pain. The patient has good rotational motion of the lumbar spine, both laterally as well as extension and flexion without significant difficulty. No tenderness over the spinous processes, sacrum or sacroiliac regions. EXTREMITIES: upper extremities show deep tendon reflexes 2+ in the patellar and tendo calcaneus tendons. Motor exam is 5 on a scale of 5 with right biceps and triceps flexion and 5/5 on the left. Peripheral pulses are 2+ radial. No peripheral edema is noted bilaterally. upper extremities are warm and dry to touch, equal in color and appearance. The patient is able to extend and contract the thumb fingers without difficulty and good opposition of thumb to fifth finger as well.. SKIN: Shows warm and dry, good turgor. No edema. No sores, rashes or bruising throughout. Procedure: Procedure: Options discussed with the patient. Patient's old chart was reviewed his his current medication regimen updated current review of systems updated today as we ll. We will proceed with a right carpometacarpal joint injection at the thumb. Risks were discussed including but not limited to bleeding infection possibility of intervascular injection sequelae spread local anesthetic and numbness side effects of steroid medication importance also guarding pain control. Patient understands wished to proceed. Patient will return to clinic in approximately 4 weeks for follow-up. Was counseled as to return appointment activity level and side effects to be aware. Medication Injected: Med Injected: Under sterile prep and drape right hand was prepped and using a 25-gauge needle after negative aspiration the right carpometacarpal joint at the thumb was injected using 2 cc of 0.25% bupivacaine and 40 mg of Depo-Medrol. Patient tolerated procedure well had no complications. Condition at Discharge: Condition at Discharge: Condition at discharge is stable patient procedure well had no immediate complications. BRADY CHAMBERLAIN MD Jun 28, 2020 09:44
== END | disposition home or self-care (01) ==
LOC: PNCL 08:47
PROVIDERS: ATTEND Anesthesiology
DX: M25.531 Pain in right wrist (principal); Z79.82 Long term (current) use of aspirin; Z79.899 Other long term (current) drug therapy; Z88.8 Allergy status to other drugs, medicaments and biological substances; Z72.89 Other problems related to lifestyle
CPT/HCPCS: 20600; J1030; J3490

== ENCOUNTER 2021-10-03 09:43 | Day surgery (SDC) | payer MEDICARE ==
[~2021-10-03] VITALS: Ht 182.9 cm; Wt 95.0 kg
[~2021-10-03 09:43] MED LIST changes: +ASPI-630 PO; -BUPIVACAINE MPF 0.25% 10 ML VIAL. ONE; +DOXY100T PO; -DRON400T PO; +DRON400T6 PO; +FAMO40TA4 PO; +HYDR-2759 PO; +HYDROmorphone 2 MG/ML VIAL IVP PRN; +IV RINGERS,LACTATED 1000ML 1,000 ML IV SCH; +METH4TAB2 PO; +MORPHINE SULFATE 2 MG/ML INJ. IVP PRN; +OMEG1CAP65 PO; +PROCHLORPERAZINE 10 MG/2 ML VIAL. IVP PRN; +fentaNYL PF VIAL 100 MCG/2 ML VIAL IVP PRN; -methylPREDNISolone ACETATE 40 MG/ML VIAL. ONE
--- NOTE | 2021-10-03 10:18 | PDOC1 ---
History and Physical Date of Service: DOS: DATE: 10/03/21 TIME: 10:11 Chief Complaint: Chief Complain: right foot pain History of Present Illness: HPI: Patient evaluated in PreOp prior to right toe partial amputation. He did not have any complaints, looking forward to surgery. Said he last took his Pradaxa two days ago. Denies any hx diabetes, stroke, kidney disease, chf, cad. Allergies: Allergies: Coded Allergies: Iodinated Contrast Media (Verified Allergy, Intermediate, Hives, 10/03/21) Family History: Family History: Reviewed with patient, no known Social History: Social History: Denies alcohol tobacco drug use Current Medications: Current Medications Current Medications Fentanyl Citrate (Fentanyl 2ml Vial) 25 mcg PRN Q5MIN PRN IVP MILD PAIN 1-3; Start 10/03/21 at 06:00; Stop 10/04/21 at 05:59 Fentanyl Citrate (Fentanyl 2ml Vial) 50 mcg PRN Q5MIN PRN IVP MODERATE PAIN 4- 6; Start 10/03/21 at 06:00; Stop 10/04/21 at 05:59 Morphine Sulfate (Morphine Sulfate) 1 mg PRN Q10MIN PRN IVP SEVERE PAIN 7-10; Start 10/03/21 at 06:00; Stop 10/04/21 at 05:59 Ringer's Solution 1,000 ml @ 30 mls/hr Q24H IV ; Start 10/03/21 at 06:00; Stop 10/03/21 at 17:59 Hydromorphone HCl (Dilaudid) 0.5 mg PRN Q10MIN PRN IVP SEVERE PAIN 7-10, 2nd CHOICE; Start 10/03/21 at 06:00; Stop 10/04/21 at 05:59 Prochlorperazine Edisylate (Compazine) 5 mg PACU PRN PRN IVP NAUSEA, MRX1; Start 10/03/21 at 06:00; Stop 10/04/21 at 05:59 Cefazolin Sodium/ Dextrose 50 ml @ 100 mls/hr 1X PREOP PRN IV PRIOR TO PROCE DURE; Start 10/03/21 at 06:00; Stop 10/03/21 at 18:00 Active Scripts Active Reported Famotidine 40 Mg Tablet 40 Mg PO HS Fish Oil Ec 1,200 Mg Softgel (Solano-3S/Dha/Epa/Fish Oil) 1 Each Capsule.dr 1 Each PO DAILY Celebrex (Celecoxib) 200 Mg Capsule 200 Mg PO BID 30 Days Aspirin 81 Mg Tab.chew 81 Mg PO DAILY Hydrocodone-Acetamin 5-325 mg (Hydrocodone/Acetaminophen) 1 Each Tablet 1 Each PO Q4HRS PRN Alfuzosin Hcl 10 Mg Tab.er.24h 1 Tab PO DAILY Pradaxa (Dabigatran Etexilate Mesylate) 150 Mg Capsule 1 Cap PO DAILY Glucosamine Chondroitin Cap (Gluc Hcl/Csa/Celso Hy/Hyalur Ac) 1 Each Capsule 500 Mg PO DAILY Citalopram Hbr (Citalopram Hydrobromide) 20 Mg Tablet 20 Mg PO DAILY Simvastatin 20 Mg Tablet 20 Mg PO QHS Trazodone Hcl 50 Mg Tablet 50 Mg PO QHS Buproban (Bupropion Hcl) 150 Mg Tablet.er 150 Mg PO DAILY ROS: Review of Systems Review of System REVIEW OF SYSTEMS: GENERAL: Denies weakness SKIN: No bruising, hair changes or rashes. EYES: No blurred, double or loss of vision. NOSE AND THROAT: No history of nosebleeds, hoarseness or sore throat. HEART: No history of palpitations, chest pain or shortness of breath on exertion. LUNGS: Denies cough, hemoptysis, wheezing or shortness of breath. GASTROINTESTINAL: Denies changes in appetite, nausea, vomiting, diarrhea or constipation. GENITOURINARY: No history of frequency, urgency, hesitancy or nocturia. NEUROLOGIC: Denies history of numbness, tingling, or tremor. PSYCHIATRIC: No history of panic, anxiety or depression. ENDOCRINE: No history of heat or cold intolerance, polyuria or polydipsia. EXTREMITIES: Denies joint pain, pain on walking or stiffness. Physical Exam: Physcial Exam: GEN: No apparent distress. Alert and oriented HEENT: Normal cephalic, atraumatic, external auditory canals are patent EYES: Extraocular muscles are intact, pupil are equally round and reactive to light and accommodation MUSCULOSKELETAL: Well developed , well nourished, good range of motion ENDOCRINE: No thyromegaly was palpated LYMPHATICS: No cervical chain or axillary nodes were noted HEMATOPOIETIC: No bruising NECK: Supple, no JVD, no thyromegaly was noted LUNGS: Clear to auscultation in all lung [place] without rhonchi or wheezing HEART: RRR, S!, S2 present. Peripheral pulses intact, no obvious murmurs noted ABDOMEN: Soft, nontender. Positive bowel sounds, no organomegaly, normal bowel sounds EXTREMITIES: Without clubbing, cyanosis, or edema. Pedal pulses intact. Negative Homans sign NEUROLOGIC: Normal speech and tone. A&O x 3, moves all extremities, no obvious focal deficits PSYCHIATRIC: Normal affect, normal mood. Stable SKIN: No ulcerations or rashes, good skin turgor, no jaundice VASCULAR: Good capillary refill, neurovascular bundle appears to be intact Assessment/Plan Assessment/Plan Ok to proceed wt surgery from hospitalist perspective. Will be increased bleeding risk with patient being on Pradaxa last taken 2 d ago; can consider Andexxa or Praxbind should any significant bleeding occur. Hazel 0. Justifications for Admission Other Justification YANELI DAILY MD Oct 03, 2021 10:18
[2021-10-03] MEDS ORDERED: BUPIVACAINE MPF 0.25% 30 ML VIAL. ONE (14:35)
[2021-10-03] MEDS ORDERED: VANCOMYCIN 1 GM VIAL. ONE (14:35)
[2021-10-03] MEDS ORDERED: ONDANSETRON PF 4 MG/2 ML VIAL. ONE (14:56)
[2021-10-03] MEDS ORDERED: PROPOFOL 10 MG/ML (20ML) VIAL. IV ONE (14:56)
[2021-10-03] MEDS ORDERED: DEXAMETHASONE SOD PHOS 4 MG/ML VIAL ONE (14:56)
[2021-10-03] MEDS ORDERED: LIDOCAINE 2% PF 5 ML VIAL. ONE (14:56)
[2021-10-03] MEDS ORDERED: fentaNYL PF VIAL 100 MCG/2 ML VIAL ONE (14:57)
--- NOTE | 2021-10-03 15:35 | PDOC4 ---
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 There is no cellulitis, open lesion, concern for osteomyelitis to the right second digit. Post-Op Diagnosis: Same as above Procedure Performed: Right second digit partial amputation Surgeon: Dacia Obregon DPM Anesthesia Type: General Blood Loss: 5 cc Specimans Obtained: None Findings: Semirigid right second hammertoe contracture without any clinical signs of osteolytic changes, cellulitis or deep tissue abscess. I explained to patient that the partial dictation is to avoid mechanical irritation to the hallux. Leaving the base of the second toe in place will prevent further hallux drifting or mechanical irritation against the third toe. Because there is pre-existing dorsal contracture of the second MTPJ, the distal second phalangeal stump may remain elevated after surgery. However, this does not cause any clinical complications or limitations. Complications: None Operative Note: Patient was brought into the operating room and placed on the operating table in a supine position. A timeout was performed to confirm patient's identity, location of surgery and procedure. After induction of general anesthesia, a pneumatic ankle tourniquet was placed with pressure set 250 mmHg. The right lower extremity was then scrubbed, prepped and draped in the usual sterile manner. Right lower extremity was elevated for gravity exsanguination and the tourniquet was inflated to 250 mmHg. Then the attention was directed to the right second digit where a modified fishmouth incision was made at the level of the proximal phalanx. Incision was carried deep to the periosteum layer with care to protect and retract all the neurovascular bundles. Using a sagittal saw, the second digit was resected at the proximal metaphysis of the proximal phalanx. Intraoperative finding was insignificant for purulence, necrotic tissue or osteolytic bone. The surgical site was irrigated with copious saline solution. The skin was closed with 3-0 and 4-0 nylon. The site was dressed with Betadine soaked Adaptic, 4 x 4 gauze. Tourniquet was deflated, adequate digital perfusion was noted. Postoperative anesthesia consisted of 5 cc of quarter percent Marcaine plain was infiltrated to the surgical site for pain control. The right surgical foot was dressed with soft roll and Mahendra bandage with minimal compression. Patient tolerated procedure anesthesia well with vital signs stable and neurovascular status intact. Patient was then transferred to PACU for continued recovery. Pending right foot 3 view x-ray PACU. DACIA OBREGON DPM Oct 03, 2021 15:35
[2021-10-03] MEDS ORDERED: SEVOFLURANE > 120 MINUTES. IH ONE (15:42)
[2021-10-03] MEDS ORDERED: oxyCODONE/APAP 5/325 1 TAB TABLET PO ONE (15:45)
[2021-10-03] MEDS ORDERED: GABAPENTIN 100 MG CAPSULE. PO ONE (15:45)
[2021-10-03] MEDS ORDERED: ACETAMINOPHEN 325 MG TABLET. PO ONE (15:45)
--- NOTE | 2021-10-03 16:09 | RAD ---
EXAM: Right foot, 3 views. HISTORY: Postoperative evaluation. COMPARISON: 09/20/2021 FINDINGS: 3 views of the right foot are obtained. There is instrumented fusion of the first metatarsa l phalangeal joint and evidence of prior hallux valgus repair. There is bony bridging across the join t space. There has been amputation of the second phalanx of the base of the proximal phalanx. There i s surrounding soft tissue gas due to relative recent surgery. There is a small plantar spur. There is bony fusion of the subtalar joint. There are track de león due to prior instrumentation within the [facility]foot. 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 IMPRESSION: 1. Interval amputation of the second toe at the base of the proximal phalanx. 2. Instrumented fusion of the first metatarsophalangeal joint with bony bridging. 3. Fusion of the hindfoot with prior instrument explantation. 4. Severe tibiotalar joint osteoarthritis. Electronically signed by: Gricel Lopez MD (10/03/2021 4:06 PM) [id number]
[2021-10-03 16:15] VITALS: BP 125/62
== END 2021-10-03 16:40 | disposition home or self-care (01) ==
LOC: SURG 09:43
PROVIDERS: ATTEND Podiatrist
DX: M79.671 Pain in right foot (principal); M20.5X1 Other deformities of toe(s) (acquired), right foot; L03.031 Cellulitis of right toe; M20.41 Other hammer toe(s) (acquired), right foot; I10 Essential (primary) hypertension; I25.10 Atherosclerotic heart disease of native coronary artery without angina pectoris; E78.5 Hyperlipidemia, unspecified; J44.9 Chronic obstructive pulmonary disease, unspecified; N40.0 Benign prostatic hyperplasia without lower urinary tract symptoms; J32.8 Other chronic sinusitis; F32.9 Major depressive disorder, single episode, unspecified; F41.9 Anxiety disorder, unspecified; I48.91 Unspecified atrial fibrillation; Z98.890 Other specified postprocedural states; Z79.899 Other long term (current) drug therapy; Z88.8 Allergy status to other drugs, medicaments and biological substances; Z79.01 Long term (current) use of anticoagulants; Z91.041 Radiographic dye allergy status
CPT/HCPCS: 28825; 73630; A4209; A4930; A6223; J0690; J1100; J2405; J2704; J3010; J3370; J3490; A4657

== ENCOUNTER 2021-11-14 14:34 | Emergency (ER) | payer MEDICARE ==
[2021-11-14 09:18] VITALS: BP 116/72
[~2021-11-14 14:34] MED LIST changes: -ACETAMINOPHEN 325 MG TABLET. PO ONE; -BISACODYL 10 MG SUPP.RECT. PR PRN; -BUPIVACAINE MPF 0.25% 30 ML VIAL. ONE; -DEXAMETHASONE SOD PHOS 4 MG/ML VIAL ONE; -DEXTROSE 50% 25 GM / 50ML DISP.SYRIN. IV PRN; -FAMOTIDINE 20 MG/2 ML VIAL IVP ONE; -GABAPENTIN 100 MG CAPSULE. PO ONE; -GLYCOPYRROLATE 1 MG/5 ML VIAL. ONE; -HYDROmorphone 2 MG/ML INJ. IVP PRN; -IV RINGERS,LACTATED 1000ML 1,000 ML IV SCH; -LIDOCAINE 1% PF 5 ML VIAL. ONE; -MORPHINE SULFATE 2 MG/ML INJ. IVP PRN; -ONDANSETRON PF 4 MG/2 ML VIAL. ONE; -PROCHLORPERAZINE 10 MG/2 ML VIAL. IVP PRN; -PROPOFOL 10 MG/ML (20ML) VIAL. IV ONE; -SEVOFLURANE 16 TO 30 MINUTES. IH ONE; -SUCCINYLCHOLINE 200 MG/10 ML VIAL. ONE; -VANCOMYCIN 1 GM VIAL. ONE; -fentaNYL PF VIAL 100 MCG/2 ML VIAL IVP PRN; -fentaNYL PF VIAL 100 MCG/2 ML VIAL ONE; -oxyCODONE/APAP 5/325 1 TAB TABLET PO ONE
== END 2021-11-14 14:49 | disposition left against medical advice (07) ==
LOC: ER 14:34
DX: R33.9 Retention of urine, unspecified (principal); Z53.21 Procedure and treatment not carried out due to patient leaving prior to being seen by health care provider

== ENCOUNTER → 2021-11-14 | Day surgery (SDC) | payer MEDICARE ==
[~2021-11-14] VITALS: Ht 182.9 cm; Wt 96.0 kg
[~2021-11-14] MED LIST changes: +ACETAMINOPHEN 325 MG TABLET. PO ONE; +BISACODYL 10 MG SUPP.RECT. PR PRN; +BUPIVACAINE MPF 0.25% 30 ML VIAL. ONE; +DEXAMETHASONE SOD PHOS 4 MG/ML VIAL ONE; +DEXTROSE 50% 25 GM / 50ML DISP.SYRIN. IV PRN; +FAMOTIDINE 20 MG/2 ML VIAL IVP ONE; +GABAPENTIN 100 MG CAPSULE. PO ONE; +GLYCOPYRROLATE 1 MG/5 ML VIAL. ONE; +HYDROmorphone 2 MG/ML INJ. IVP PRN; -HYDROmorphone 2 MG/ML VIAL IVP PRN; +LIDOCAINE 1% PF 5 ML VIAL. ONE; +ONDANSETRON PF 4 MG/2 ML VIAL. ONE; +PROPOFOL 10 MG/ML (20ML) VIAL. IV ONE; +SEVOFLURANE 16 TO 30 MINUTES. IH ONE; +SUCCINYLCHOLINE 200 MG/10 ML VIAL. ONE; +VANCOMYCIN 1 GM VIAL. ONE; +fentaNYL PF VIAL 100 MCG/2 ML VIAL ONE; +oxyCODONE/APAP 5/325 1 TAB TABLET PO ONE
[2021-11-14 06:34] VITALS: BP 122/67
--- NOTE | 2021-11-14 08:20 | PDOC4 ---
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 Prior history of left PIPJ arthroplasty, Efrem osteotomy, hemiimplant across the first MTPJ with recurrent bunion deformity and hammertoe deformity. Post-Op Diagnosis: Same as above Procedure Performed: Partial left toe amputation Surgeon: Dacia Obregon DPM Anesthesia Type: General with LMA Blood Loss: 5 cc Specimans Obtained: None Findings: There is no skin envelope compromise, proximal tracking, necrotic changes to the wound bed. There is no osteolytic changes clinically to the second digit. Complications: None Operative Note: Patient was brought into the operating room and placed on the operating table in a supine position. A timeout was performed to confirm patient's identity, location of surgery and procedure. After induction of general anesthesia with LMA, a pneumatic high ankle tourniquet was placed with pressure set 250 mmHg. Following alcohol skin prep, 5 cc of 0.25% Marcaine plain was infiltrated to the surgical site proximal to the second MTPJ. The left lower extremity was then scrubbed, prepped and draped in the usual sterile manner. The left lower extremity was exsanguinated and the tourniquet was inflated to 250 mmHg. Then the attention was directed to the left second digit. A full-thickness, modified fishmouth incision was carried out to the level of the proximal second phalanx. The incision was carried deep to the level of the periosteum. The operative finding was negative for osteolytic changes, purulence, or necrotic soft tissue changes. Using a sagittal saw, the second digit was resected at the level of the proximal shaft of the proximal phalanx. Because prior x-rays were insignificant for osteolytic changes; clinically, there was no open lesions, the decision was made not to send any specimen for pathology or deep tissue culture. The surgical site was irrigated with copious saline solution. The tissue appeared granular with healthy pinpoint bleeding. The surgical site was closed with 3-0 Vicryl and 4-0 nylon. Tourniquet was deflated, adequate digital perf usion was noted. The surgical foot was dressed with Xeroform, 4 x 4 gauze, abdominal pad, Kerlix and Mahendra bandage with minimal compression. Patient tolerated procedure anesthesia well with vital signs stable and neurovascular status intact. Patient was then transferred to PACU for continued recovery. Pending surgical foot x-ray 3 view in PACU. DACIA OBREGON DPM Nov 14, 2021 08:20
--- NOTE | 2021-11-14 09:10 | RAD ---
EXAM: Left foot, 3 views. HISTORY: Postoperative evaluation. COMPARISON: 11/01/2021 FINDINGS: 3 views of the left foot are obtained. There has been interval amputation of the second toe at the proximal aspect of the proximal phalanx. There is a punctate density along the overlying soft tissues which may be a tiny foreign body. There are postoperative changes consistent with left hallu x metatarsal phalangeal joint resurfacing hemiarthroplasty. There is no evidence of arthroplasty loos ening. There is degenerative bony remodeling involving the proximal first proximal phalanx. There is a small plantar spur. IMPRESSION: 1. Interval amputation of the second toe at the proximal aspect of the second proximal phalanx. There is a punctate density within the overlying soft tissues which may be a tiny foreign body. 2. Stable findings consistent with left hallux metatarsal phalangeal joint resurfacing hemiarthroplas ty. 3. Small plantar spur. Electronically signed by: Gricel Lopez MD (11/14/2021 9:08 AM) [id number]
[2021-11-14 09:18] VITALS: BP 116/72
== END | disposition home or self-care (01) ==
LOC: SURG 06:03
PROVIDERS: ATTEND Podiatrist
DX: M20.42 Other hammer toe(s) (acquired), left foot (principal); M21.612 Bunion of left foot; I25.10 Atherosclerotic heart disease of native coronary artery without angina pectoris; I10 Essential (primary) hypertension; E78.00 Pure hypercholesterolemia, unspecified; I48.91 Unspecified atrial fibrillation; E66.9 Obesity, unspecified; K21.9 Gastro-esophageal reflux disease without esophagitis; G47.30 Sleep apnea, unspecified; M19.90 Unspecified osteoarthritis, unspecified site; F41.9 Anxiety disorder, unspecified; F32.9 Major depressive disorder, single episode, unspecified; Z79.899 Other long term (current) drug therapy; Z98.890 Other specified postprocedural states; Z79.82 Long term (current) use of aspirin; Z91.041 Radiographic dye allergy status
CPT/HCPCS: 28820; 73630; A4930; A6223; A6253; A6402; J0330; J0690; J1100; J2405; J2704; J3010; J3490; A6443; A6452; J3370